=== PATIENT | male | born 1970 | race Caucasian/White ===

== ENCOUNTER 2025-02-27 11:52 | Inpatient (IN) | payer BC, SELFPAY ==
[2025-02-27] VITALS (8 sets, daily range): BP systolic 94–123; BP diastolic 48–89; PULSE 69–113; RESP 10–30; TEMP 36.7–37.1; O2SAT 95–99; BMI 26.2
--- NOTE | ~2025-02-27 | US_ITS ---
CLINICAL HISTORY: Edith evaluation Ultrasound gallbladder Comparison: None Findings: There are no shadowing gallstones. There is no gallbladder wall thickening or pericholecystic fluid. The sonographic Suazo's sign is negative. The common bile duct measures 3 mm in diameter. There is a hepatopetal flow within the main portal vein. Impression: 1. No cholelithiasis or common bile duct obstruction. This document has been electronically signed by: Cristina Maldonado MD on 02/27/2025 14:55:39
--- NOTE | 2025-02-27 11:58 | ED.GENADULT ---
[facility] - General Adult General Chief complaint: ETOH/Substance Use Stated complaint: VOMITING,THROAT/CHEST PAIN,X6D SINCE LAST DRINK Time Seen by Provider: 02/27/25 11:54 Source: patient Mode of arrival: ambulatory Limitations: no limitations History of Present Illness ED Provider: Dr. Shore [facility] narrative: This Is a 54-year-old male history of alcohol use disorder drinks 1-2 handles of vodka daily last drink was approximately 6 days ago. Presents to ER today for evaluation of alcohol withdrawal. Patient stated he feels anxious he feels nauseous he feels he is having visual hallucination and tremors. Patient does not have history of alcohol seizure withdrawal in the past. Related Data Allergies Allergy/AdvReac Type Severity Reaction Status Date / Time No Known Allergies Allergy Verified 02/27/25 12:12 Review of Systems Review of Systems: Pertinent review of systems as mentioned in HPI. All other system otherwise negative. [facility] Past Medical History [facility] Narrative: Medical history as mentioned in HPI Social History Social History Alcohol intake: current Alcohol intake frequency: 3 or more drinks per day Alcohol type: hard liquor Smoked in Last 30 Days: No Use of substances other than those prescribed or required for medical reasons: No Advance Directives: No Advance Directives Information Provided: Yes Do you have a plan to hurt others: No Plan Physical Exam ED Exam Exam: General: Appears to be withdrawal Head: Normacephalic, atraumatic ENT: oral mucosa moist, neck supple, no tracheal deviation Cardiovascular: Tachycardic rate, regular rhythm, no murmurs, rubbing, gallops Respiratory: CTAB, no wheeze, rales, rhonchi Gastrointestinal: Soft, diffuse abdominal tenderness on palpation Extremities: No limb pain or swelling, no calf tenderness Neurological: Awake and alert, no facial droop noted Skin: Warm and dry Psychiatric: Appears anxious endorses hallucinations Vital Signs: Vital Signs - 24 hr 02/27/25 12:08 Temperature 98.0 F Pulse Rate 113 H Respiratory Rate 30 H Blood Pressure 116/69 Pulse Oximetry 98 Oxygen Delivery Method Room Air BMI result Body Mass Index 26.2 Medications Administered Discontinued Medications Generic Name Dose Route Start Last Admin Trade Name Freq PRN Reason Stop Dose Admin Al Hydroxide/Mg Hydroxide 30 ml 02/27/25 13:19 02/27/25 13:53 Magnesium Hydrox/Alum Hydrox 30 Ml Oral.Susp PO 02/27/25 13:20 30 ml ONCE ONE Administration Famotidine 20 mg 02/27/25 12:14 02/27/25 12:33 Famotidine/Pf 20 Mg/2 Ml Vial IVPUSH 02/27/25 12:15 20 mg ONCE ONE Administration Lactated Ringer's 1,000 mls @ 999 mls/hr 02/27/25 12:15 02/27/25 13:57 Lr IV 02/27/25 13:15 Infused .Q1H1M ELSA Infusion Magnesium Sulfate 2 gm in 50 mls @ 50 mls/hr 02/27/25 13:45 02/27/25 15:22 Magnesium Sulfate/H2o IV 02/27/25 14:44 50 mls/hr ONCE ONE Administration Potassium Chloride 10 meq in 100 mls @ 100 mls/hr 02/27/25 13:45 02/27/25 15:22 Potassium Chloride/H20 IV 02/27/25 15:44 100 mls/hr Q1H ELSA Administration Lactated Ringer's 1,000 mls @ 999 mls/hr 02/27/25 14:00 02/27/25 14:08 Lr IV 02/27/25 15:00 999 mls/hr .Q1H1M ELSA Administration Lidocaine HCl 15 ml 02/27/25 13:19 02/27/25 13:53 Lidocaine Hcl Viscous 2 % 15 Ml Solution MUCOUS MEM 02/27/25 13:20 15 ml ONCE ONE Administration Midazolam HCl 4 mg 02/27/25 12:16 02/27/25 12:33 Midazolam Hcl 2 Mg/2 Ml Vial IVPUSH 02/27/25 12:17 4 mg ONCE ONE Administration Ondansetron HCl 4 mg 02/27/25 12:14 02/27/25 12:33 Ondansetron Hcl 4 Mg/2 Ml Vial IVPUSH 02/27/25 12:15 4 mg ONCE ONE Administration Pantoprazole Sodium 80 mg 02/27/25 13:19 02/27/25 13:57 Pantoprazole Sodium 40 Mg/10 Ml Vial IVPUSH 02/27/25 13:20 80 mg ONCE ONE Administration Phenobarbital Sodium 338 mg 02/27/25 13:00 02/27/25 13:55 Phenobarbital Sodium 130 Mg/Ml Im Once IM 02/27/25 13:01 338 mg ONCE ONE Administration Protocol Medical Decision Making Medical Decision Making MDM Narrative: This is a 54-year-old male history of alcohol use disorder presented hospital today for evaluation of alcohol withdrawal. We will plan to start patient on IV fluid, IV Zofran be given for nausea, IV Pepcid will be given for his GI pain. We will also plan to give patient a dose IV Versed. We will plan to start patient on phenobarbital protocol as well. Basic lab work will be obtained and the patient will check his electrolytes as well. Patient has signs of hypokalemia on lab work. We will plan to replete his potassium level. Further exam patient does have erythema in the oropharynx with some dry dark substance on his tongue IV Protonix will be given the patient. IV fluid be given the patient. Patient given phenobarbital. Patient's ultrasound of abdomen did not show any sign of cholecystitis or choledocholithiasis. He does have elevation of lipase transaminitis and bilirubin likely secondary to his alcohol use. We will plan to admit patient for alcohol withdrawal with hallucination. Differential Diagnosis Differential Diagnoses: The differential diagnosis associated with the presentation includes Alcohol withdrawal, dehydration, alcoholic gastritis, electrolyte abnormality Lab Data [facility] Lab Attestation statement: I reviewed the patient's lab results. 02/27/25 12:42 02/27/25 12:42 Labs: Lab Results 02/27/25 Range/Units 12:42 WBC 7.9 (4.8-10.8) X10*3/uL RBC 5.64 (4.60-5.80) X10*6/uL Hgb 16.0 (14.0-18.0) g/dl Hct 44.9 (42.0-52.0) % MCV 79.6 L (80.0-98.0) fL MCH 28.4 (27.0-33.0) pg MCHC 35.6 (31.0-36.0) g/dl RDW 14.5 (11.0-16.0) % Plt Count 117 L (160-400) X10*3/uL MPV 10.0 (9.4-12.4) fL Immature Gran % (Auto) 0.4 (0.0-0.4) % Neut % (Auto) 83.9 H (45-73) % Lymph % (Auto) 5.3 L (20-40) % Evans % (Auto) 10.3 (2-11) % Eos % (Auto) 0.0 (0-4) % Baso % (Auto) 0.1 (0-2) % Lymph # (Auto) 0.4 L (1.2-4.9) X10*3/uL Evans # (Auto) 0.8 (0.1-1.2) X10*3/uL Eos # (Auto) 0.0 (0.0-0.4) X10*3/uL Baso # (Auto) 0.0 (0.0-0.2) X10*3/uL Abs Immat Gran (auto) 0.03 (0.00-0.03) X10*3/uL Absolute Neuts (auto) 6.6 (2.0-8.3) x10*3/uL Absolute Nucleated RBC 0.000 (0.0-0.012) X10*3/uL Nucleated RBC % (auto) 0.0 (0.0-0.2) /100WBC Sodium 142 (135-145) mmol/L Potassium 2.9 L* (3.3-5.1) mmol/L Chloride 91 L (96-108) mmol/L Carbon Dioxide 29 (22-29) mmol/L Anion Gap 25 H (12-20) BUN 45 H (9-16) mg/dL Creatinine 2.58 H (0.5-1.4) mg/dL Estim Creat Clear Calc 39.5 Estimated GFR 26 Random Glucose 155 H (60-115) mg/dL Calcium 10.3 H (8.4-10.2) mg/dL Magnesium 1.6 (1.6-2.6) mg/dL Total Bilirubin 3.0 H (0.0-1.0) mg/dL AST 163 H (5-37) U/L ALT 208 H (0-40) U/L Alkaline Phosphatase 77 (39-117) U/L Total Protein 8.0 (6.5-8.0) g/dL Albumin 5.3 H (3.5-5.0) g/dL Lipase 162 H (8-78) U/L Ethyl Alcohol < 10 mg/dL Independent Interpretation I performed an independent interpretation of an: EKG and Ultrasound Radiology Impression Discussion of test interpretation with radiology: I have reviewed the radiologist's reading. Chronic Conditions Alcohol use disorder Critical Care Time Critical Care Time Critical Care Time: Yes Total Critical Care Time: 45 Attestation: Time is exclusive of separately billable procedures. Time includes: direct patient care, patient reassessment, coordination of patient care, interpretation of data (laboratory data, pulse oximetry, arterial blood gases and chest xrays), review of patient's medical records, medical consultation and documentation of patient care. Procedures excluded from critical care time: central intravenous line placement and electrocardiography. Discharge Plan Discharge Clinical Impression: Alcohol withdrawal syndrome Patient Disposition: Admitted As Inpatient Print Language: Palestinian
--- NOTE | 2025-02-27 12:23 | ECG_ITS ---
Test Reason : TACHY Blood Pressure : */* mmHG Vent. Rate : 114 BPM Atrial Rate : 114 BPM P-R Int : 84 ms QRS Dur : 82 ms QT Int : 408 ms P-R-T Axes : 75 -59 -9 degrees QTcB Int : 562 ms Sinus tachycardia with short MN Left anterior fascicular block T wave abnormality, consider anterolateral ischemia Abnormal ECG No previous ECGs available Referred By: Wanda Shore Electronically Signed By: Frankie Newberry
--- OUTSIDE RECORDS SUMMARY | 2025-02-27 12:31 | XMS_ITS | Clinical Summary ---
Author Organization [facility] Address [address] [place] [id number] Phone Care Team Providers Care Commanding Officer Traffic Division Name Role Phone JanelNahum pennington Primary Care Provider [phone] Allergies No known active allergies Medications buPROPion (WELLBUTRIN XL) 150 MG ER 24 hr tablet Take 1 tablet (150 mg total) by mouth daily. 30 tablet 09/25/2024 Active carboxymethylcel lulose (REFRESH LIQUIGEL) 1 % ophthalmic solution Place 2 drops into each eye every hour as needed (Dry eye). 30 mL 12 09/24/2024 Active Active Problems Problem Noted Date Diagnosed Date Alcohol use disorder 09/22/2024 Assessment & Plan (09/23/2024 3:39 PM EDT): Pt interested in help with alcohol cessation. Will start him on oral naltrexone Have put in application to [employer], will likely go there after d/c to his mother's Assessment & Plan (09/22/2024 2:23 PM EDT): Pt interested in help with alcohol cessation. Will start him on oral naltrexone Outpt services, SW consult Persistent depressive disorder 09/22/2024 Assessment & Plan (09/23/2024 3:39 PM EDT): Pt believes he should have started taking meds a long time ago. As he does not have a seizure history will start on wellbutrin which can also assist with addiction management Assessment & Plan (09/22/2024 2:23 PM EDT): Pt believes he should have started taking meds a long time ago. As he does not have a seizure history will start on wellbutrin which can also assist with addiction management EVANGELINA (acute kidney injury) 09/20/2024 Assessment & Plan (09/23/2024 3:39 PM EDT): resolved No further treatment or monitoring indicated Assessment & Plan (09/22/2024 2:23 PM EDT): resolved No further treatment or monitoring indicated Assessment & Plan (09/21/2024 1:57 PM EDT): resolving No hx of CKD known although last cr available is from 2019 Will give IVF Await UA for further differential -- UA shows >10 casts, FeNa reveals profound prerenal state consistent with presumed lack of oral intake. Renal function improving with hydration. Assessment & Plan (09/21/2024 1:54 AM EDT): Marked EVANGELINA No hx of CKD known although last cr available is from 2019 Will give IVF Await UA for further differential -- UA shows >10 casts, FeNa reveals profound prerenal state consistent with presumed lack of oral intake. Renal function improving with hydration. Alcohol withdrawal delirium, acute, hyperactive 09/20/2024 Assessment & Plan (09/23/2024 3:39 PM EDT): Resolved Acute etoh withdrawal with sweats, tremor, hallucinations, flushing Much better after a total of 14 mg/kg phenobarb Assessment & Plan (09/22/2024 2:23 PM EDT): Resolved Acute etoh withdrawal with sweats, tremor, hallucinations, flushing Much better this morning after a total of 14 mg/kg phenobarb Plan Will use benzos from here if needed Thiamine Folate [facility] SW consult Assessment & Plan (09/21/2024 1:57 PM EDT): Acute etoh withdrawal with sweats, tremor, hallucinations, flushing Much better this morning after a total of 14 mg/kg phenobarb Plan Will use benzos from here if needed Thiamine Folate [facility] SW consult Can start naloxone here if he is interested Assessment & Plan (09/20/2024 11:00 PM EDT): Acute etoh withdrawal with sweats, tremor, hallucinations, flushing Plan Total initial pheno of 12/kg IVF's Monitor I/0' Thiamine Folate [facility] SW consult when mentation improves Social History Tobacco Use Types Packs/Day Years Used Date Smoking Tobacco: Some Days Alcohol Use Standard Drinks/Week Comments Yes 0 (1 standard drink = 0.6 oz pure alcohol) 10 drinks a day at least. last drink etoh Education Answer Date Recorded Are you interested in more education? Not on garo e 09/21/2024 Are you concerned about learning? Not on file 09/21/2024 No 09/21/2024 No 09/21/2024 Food Answer Date Recorded Within the past 6 months we worried whether our food would run out before we got money to buy more. Unable to assess 025 Within the past 6 months the food we bought just didn't last and we didn't have enough money to get more. Unable to assess 09/20/2024 Residential Stability Answer Date Recor ded What is your housing situation today? Unable to assess 09/20/2024 How many times have you moved in the past 12 mon ths? Unable to assess 09/20/2024 Paying for Meds Answer Date Recorded Do you have trouble paying for medicines? Unable to assess 09/20/2024 Paying Utility Bills Answer Date Record ed Do you have trouble paying y our heating or electricity bill? Unable to assess 09/20/2024 Transportation Answer Date Recorded Has the lack of transportati on kept you from medical appointments or from getting medications? Unable to assess 09/20/2024 Digital Access Answer Date Recorded No 09/20/2024 No 09/20/2024 Do you have reliable internet access at home? Un able to assess 09/20/2024 Do you have a device (e.g., phone, tablet, computer) with a working camera? Unable to assess 09/20/2024 Intimate Partner Violence Answer Date R ecorded Are you denied basic needs s uch as food, clothing, or medical care? Patient unable to respond 09/20/2024 In the past 12 months have y ou been in a relationship with a person who hurts, threatens, or tries to control you? Patient unable to respond 09/20/2024 Are you denied basic needs s uch as food, clothing, or medical care? Patient unable to respond 09/20/2024 In the past 12 months have y ou been in a relationship with a person who hurts, threatens, or tries to control you? Patient unable to respond 09/20/2024 Sex and Gender Information Value Date Recorded Sex Assigned at Male 07/23/2018 10:07 AM EST Legal Sex Male 9:21 AM EST Gender Identity Male 07/23/2018 10:07 AM EST Sexual Orientation Straight 07/23/2018 10 :07 AM EST Last Filed Vital Signs Vital Sign Reading Time Taken Comments Blood Pressure 135/82 09/24/2024 11:55 AM EDT Pulse 78 09/24/2024 11:55 AM EDT Temperature 36.1 C (97 F) 09/24/2024 11:55 AM EDT Respiratory Rate 18 09/24/2024 8:40 AM EDT Oxygen Saturation 99% 09/24/2024 11:55 AM EDT Inhaled Oxygen Concentration - - Weight 96.4 kg (212 lb 9.6 oz) 09/24/2024 6:41 A M EDT Height 190.5 cm (6' 3 ) 09/20/2024 11:27 PM EDT Body Mass Index 26.57 09/20/2024 11:27 PM EDT Plan of Treatment Health Maintenance Due Date Last Done Comments Adult Td,Tdap Booster 1971 LIPID PANEL 1971 DEPRESSION SCREENING 1983 SMOKING Hx and SMOKELESS TOB ACCO SCREENING 1984 HEPATITIS C SCREENING 1989 HIV ONE-TIME SCREENING (18-6 5 YEARS) 1989 PNEUMOCOCCAL VACCINES (50+ y ears) (1 of 2 - PCV) 1990 COLOGUARD 2016 COLONOSCOPY 2016 COLORECTAL CANCER SCREENING 2016 FIT TEST 2016 FOBT 2016 SIGMOIDOSCOPY 2016 VIRTUAL COLONOSCOPY 2016 ZOSTER VACCINES (1 of 2) 2021 INFLUENZA VACCINE (#1) 2025 COVID-19 VACCINE (2024-2 6 season) 2025 10/11/2020 SCREENING FOR DIABETES 09/23/2027 09/22/2024 HEPATITIS A VACCINES Aged Out No long er eligible based on patient's age to complete this topic HIB VACCINES Aged Out No longer eligi ble based on patient's age to complete this topic MENINGOCOCCAL VACCINES (ACWY) Aged Out No longer eligible based on patient's age to complete this topic MENINGOCOCCAL VACCINES (B) Aged Out N o longer eligible based on patient's age to complete this topic Medical Devices Not on file Insurance PPO EPO PPO EPO [facility] [place] [address] [place] [address] [place] [address] [place] [address] E[address] [facility] PPO EPO [place] [address] [place] [address] [facility] PPO EPO Advance Directives For more information, please contact: [phone] (9AM - 5PM [facility], Friday-Friday) * Full Code (Latest Code Status on File) Date Activated Date Inactivated Comments 09/21/2024 8:13 AM Question Answer Comments Code Status Confirmed With: Other (specify below ) Care Teams Commanding Officer Traffic Division Relationship Specialty Start Date End Date Nahum Rob DO [address] [place] [id number] PCP - General Internal Medicine 09/22/24 Additional Source Comments The information contained in this document represents components of the legal health record. It is not the complete legal health record.[facility]
--- OUTSIDE RECORDS SUMMARY | 2025-02-27 12:32 | XMS_ITS | Encounter Summary ---
Author Organization [facility] Address [address] [place] [id number] Phone Care Team Providers Care Rn Operating Room Name Role Phone Pcp, Unknown Primary Care Provider Nahum Dorantes DO Primary Care Provider [phone] Encounter Details Date Type Department Care Team (Late st Contact Info) Description 09/20/2024 Procedure Pass [facility], Ct Scan - [address] [address] Social History Tobacco Use Types Packs/Day Years [...] Orientation Straight 07/23/2018 10 :07 AM EST documented as of this encounter Functional Status * Calculated C-SSRS Risk Score (Lifetime/Recent) Answer Date of Assessment Author Low Risk 09/20/2024 5:16 PM Leon Morris RN * [place] Suicide Severity Rating Scale (Screener/Recent Self-Report) Question Answer Date of Assessment Author 1. Wish to be (Past 1 Month) No 025 5:16 PM Delfino Morris, CRIS 2. Non-Specific Active Suici adi Thoughts (Past 1 Month) Yes 09/20/2024 5:16 PM Delfino Morris, RN 3. Active Suicidal Ideation with any Methods (Not Plan) Without Intent to Act (Past 1 Month) No 09/20/2024 5:16 PM Delfino Morris, RN 4. Active Suicidal Ideation with Some Intent to Act, Without Specific Plan (Past 1 Month) No 09/20/2024 5:16 PM EDT Delfino Bush, CRIS 5. Active Suicidal Ideation with Specific Plan and Intent (Past 1 Month) No 09/20/2024 5:16 PM EDT Delfino Bush, CRIS 6. Suicidal Behavior (Lifetime) No 5 5:16 PM EDT Delfino Bush, CRIS 6. Suicidal Behavior (3 Months) No 5 5:16 PM EDT Delfino Bush, CRIS documented as of this encounter Plan of Treatment Not on file documented as of this encounter Visit Diagnoses Not on filedocumented in this encounter Care Teams Rn Operating Room Relationship Specialty Start Date End Date Pcp, Unknown PCP - General 09/20/24 09/21/24 Nahum Rob DO [address] [place] [id number] PCP - General Internal Medicine 09/22/24 documented as of this encounter Additional Source Comments The information contained in this document represents components of the legal health record. It is not the complete legal health record.[facility]
--- OUTSIDE RECORDS SUMMARY | 2025-02-27 12:32 | XMS_ITS | Clinical Summary ---
Author Organization [address] Address [address] [place] [id number] Phone Care Team Providers Care Commercial Lines Assistant Name Role Phone ToniNahum melendez Primary Care Provider [phone] Allergies No known active allergies Medications No known medications Social History Tobacco Use Types Packs/Day Years Used Date Smoking Tobacco: Never Smokeless Tobacco: Never Tobacco Cessation:Counseling Given: Not Answered Alcohol Use Standard Drinks/Week Comments Yes 0 (1 standard drink = 0.6 oz pur e alcohol) Sex and Gender Information Value Date Recorded Sex Assigned at Not on file Legal Sex Male 12:02 AM EST Gender Identity Not on file Sexual Orientation Not on file Obstetrics History Last Filed Vital Signs Vital Sign Reading Time Taken Comments Blood Pressure 116/77 11/09/2024 10:20 PM EDT Pulse 93 11/09/2024 10:20 PM EDT Temperature 36.4 C (97.5 F) 11/09/2024 10:20 PM EDT Respiratory Rate 18 11/09/2024 10:20 PM EDT Oxygen Saturation 100% 11/09/2024 11:47 PM EDT Inhaled Oxygen Concentration - - Weight 95.3 kg (210 lb) 11/09/2024 10:20 PM EDT Height 190.5 cm (6' 3 ) 11/09/2024 10:20 PM EDT Body Mass Index 26.25 11/09/2024 10:20 PM EDT Plan of Treatment Health Maintenance Due Date Last Done Comments DTaP,Tdap,and Td Vaccines (1 - Tdap) 1990 Hepatitis A Vaccines (1 of 2 - Risk 2-dose series) 1990 Hepatitis B Vaccines (1 of 3 - 19+ 3-dose series) 1990 Pneumococcal Vaccine: 50+ Years (1 of 1 - PCV) 2021 Zoster Vaccines (1 of 2) 2021 Colorectal Cancer Screening: Colonoscopy 06/03/2022 HIV Screening 06/03/2022 Hepatitis C Screening 06/03/2022 Social Influencers of Health Screening 06/03/2022 Depression Screening 06/09/2024 COVID-19 Vaccine (4 - 2024-2 6 season) 2025 06/20/2021, 11/01/2020, 10/11/2020 Influenza Vaccine (#1) 2025 , 06/20/2021 Cholesterol Screening (Lipid Panel) 05/11/2029 05/11/2024 HIB Vaccines Aged Out No longer eligi ble based on patient's age to complete this topic HPV Vaccines Aged Out No longer eligi ble based on patient's age to complete this topic IPV Vaccines Aged Out No longer eligi ble based on patient's age to complete this topic MMR Vaccines Aged Out No longer eligi ble based on patient's age to complete this topic Meningococcal ACWY Vaccine Aged Out N o longer eligible based on patient's age to complete this topic Meningococcal B Vaccine Aged Out No l onger eligible based on patient's age to complete this topic RSV Immunization Patients Under 20 months Aged Out No longer eligible b ased on patient's age to complete this topic Varicella Vaccines Aged Out No longer eligible based on patient's age to complete this topic Procedures Procedure Name Priority Date/Time Associated Diagnosis Comments LIPID PANEL WITH REFLEX TO DIRECT LDL Routine 05/11/2024 9:48 AM EST Laboratory tests ordered as part of a complete physical exam (CPE) ETOH abuse IGT (impaired glucose tolerance) Anxiety HLD (hyperlipidemia) from Last 3 Months or Most Recently Relevant to Health Maintenance Results * (ABNORMAL) Lipid panel with reflex to direct LDL (05/11/2024 9:48 AM EST) Cholesterol 189 0 - 200 mg/dL LAB CHEMISTRY METHOD 05/11/2024 11:57 AM EST [facility] Triglycerides 76 0 - 150 mg/dL LAB CHEMISTRY METHOD 05/11/2024 11:57 AM EST [facility] HDL 57 >=40 mg/dL LAB CHEMISTRY METHOD 05/11/2024 11:57 AM EST [facility] LDL Calculated 117(H) 0 - 100 mg/dL LAB CHEMISTRY METHOD 05/11/2024 11:57 AM EST [facility] VLDL Cholesterol Parmjit 15.2 mg/dL LAB CHEMISTRY METHOD 05/11/2024 11:57 AM EST [facility] Non HDL Chol. (LDL+VLDL) 132 <145 mg/dL LAB CHEMISTRY METHOD 05/11/2024 11:57 AM EST [facility] Chol/HDL Ratio 3.3 0.0 - 4.4 LAB CHEMISTRY METHOD 05/11/2024 11:57 AM EST [facility] Blood Venous blood specimen / Unknown Venipuncture / Unknown 05/11/2024 9:48 AM EST 05/11/2024 9:48 AM EST us Delfino Teran LAB BLOOD ORDERABLES Final Resul t [facility] [address] [place] [address], from Last 3 Months or Most Recently Relevant to Health Maintenance Insurance [facility] Care Teams Commercial Lines Assistant Relationship Specialty Start Date End Date aNhum Rob DO [address] [place] [phone] PCP - General 11/28/21
--- OUTSIDE RECORDS SUMMARY | 2025-02-27 12:32 | XMS_ITS | Patient Health Record ---
Author Organization [facility] Address [address] [place] [id number] Care Team Providers Care Assayer Helper Name Role Phone Darron ALFORD, Nahum Primary Care Provider Lenora Maxwell Unavailable [phone] Allergies No Known Allergies Reason For Referral No Information Social History Tobacco Use: Social History Observation Description Date Details (start date - stop date) Former Smoker NA - NA Tobacco Use/Smoking Question Answer Notes Are you a: former smoker Alcohol Screen Question Answer Notes Did you have a drink containing alcohol in the p ast year? No Points 0 Interpretation Negative Tobacco use other than smoking: Question Answer Notes Are you an other tobacco user? No Problems Problem Type SNOMED Code ICD Code Onset Dates Problem Status W/U Status Risk Notes Problem Acquired hallux valgus (36833424) Hallux valgus (acquired), right foot (M20.11) Active confirmed Plan Of Treatment No Information Insurance Providers Payer Name Payer Address Payer Phone Subscriber Number Group Number Insured Name Patient Relationship to Insured Coverage Start Date Coverage End Date [facility] [address] [address] [place] [address] [phone] [id number] [id number] Tai Maurice Self - patient is the insured Medical (General) History Medical History History ICD Code Arthritis Back,Hip,and Knee pain Broken bones Chicken pox Bone implants/screws Surgical History Surgery Date(Month/Year) broken arm(s) 1994 knee surgery, left 2006
[2025-02-27] MEDS: Lactated Ringers 1,000 ML 999 ML IV ×3 (12:33→21:32)
--- NOTE | 2025-02-27 12:46 | PC.NURSE ---
Pt biba from home for ETOH withdrawal x6 days. Pt states he tried to self detox at home, last drink x6 days ago (02/21/25.) Daily drinker, 1-2 handles of vodka daily. Hx of ETOH withdrawal- denies hx of seizures with withdrawal. Per pt- unable to tolerate PO x6 days, chest pain/throat pain. Endorsing auditory hallucinations that have resolved since arriving at ED, visual hallucinations of bugs. Upon arrival to ED- pt a/ox3, diaphoretic, tremorous, tachypneic, tachycardic, speaking in full sentences, respirations even and unlabored, maintaining O2 sat >92% on RA. Endorsing nausea- no vomiting since arrival, chest/epigastric pain along with throat burning/pain d/t vomiting. Sinus tach on potline monitor, HR 110s-120s, epigastric/abdominal pain, denies diarrhea. 20g IV Right AC- ems line, patent/asymptomatic. VERONICA Esparza MD notified and at bedside for assessment. 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 Pt updated on plan of care, call estrada within reach, all needs met at this time.
[2025-02-27 12:47] LABS: MANUAL DIFF FLAG NO
[2025-02-27 12:54] LABS: Hematocrit 44.9 % (42.0-52.0); Hemoglobin 16.0 g/dl (14.0-18.0); Imm Gran Abs Auto 0.03 X10*3/uL (0.00-0.03); Imm Gran Pct Auto 0.4 % (0.0-0.4); Lymphocytes Absolute Auto 0.4 X10*3/uL (1.2-4.9); Mean Corpuscular HGB Conc 35.6 g/dl (31.0-36.0); Mean Corpuscular Hemoglobin 28.4 pg (27.0-33.0); Mean Corpuscular Volume 79.6 fL (80.0-98.0); NRBC Abs Auto 0.000 X10*3/uL (0.0-0.012); NRBC Pct Auto 0.0 /100WBC (0.0-0.2); Platelet Count 117 X10*3/uL (160-400); Red Blood Count 5.64 X10*6/uL (4.60-5.80); White Blood Count 7.9 X10*3/uL (4.8-10.8)
[2025-02-27 13:31] LABS: Alanine Aminotransferase 208 U/L (0-40); Albumin Level 5.3 g/dL (3.5-5.0); Alkaline Phosphatase 77 U/L (39-117); Anion Gap 25 (12-20); Aspartate Amino Transferase 163 U/L (5-37); Blood Urea Nitrogen 45 mg/dL (9-16); Calcium 10.3 mg/dL (8.4-10.2); Carbon Dioxide 29 mmol/L (22-29); Chloride 91 mmol/L (96-108); Creatinine Clr Calc Pharmacy 39.5; Estimated Glomerular Filt Rate 26; Magnesium 1.6 mg/dL (1.6-2.6); Potassium 2.9 mmol/L (3.3-5.1); Sodium 142 mmol/L (135-145); Total Protein 8.0 g/dL (6.5-8.0)
[2025-02-27] MEDS: Magnesium Hydrox/Alum Hydrox 30 ML ORAL.SUSP PO (13:53)
[2025-02-27] MEDS: Lidocaine HCl Viscous 2 % 15 ML SOLUTION MUCOUS MEM (13:53)
[2025-02-27] MEDS: PHENobarbitaL sodium 130 MG/ML IM ONCE 338 MG IM (13:55)
[2025-02-27] MEDS: Potassium Chloride/H20 10 MEQ/100 ML PIGGYBACK 100 MEQ IV ×2 (14:09→15:22)
--- NOTE | 2025-02-27 14:17 | PC.NURSE ---
Care of Pt assumed at approx. 1300. Pt is resting quietly on stretcher. Pt medicated per AUG. Unable to initiate IV Magnesium d/t lack of equipment (infusion pump.) Will administer upon pump availability.
[2025-02-27 14:21] LABS: Lipase 162 U/L (8-78)
[2025-02-27] MEDS: Magnesium Sulfate/H2O 2 GM/50 ML PIGGYBACK IV (15:22)
--- NOTE | 2025-02-27 15:37 | P.HPHOSP_ITS ---
History of Present Illness Date of Service: 02/27/25 Chief Complaint: Alcohol withdrawal The patient is a 54-year-old male with no significant past medical history who reports daily consumption of approximately a handle of vodka. Six days ago, he decided to self-detox and abruptly stopped drinking. Since then, he has experienced progressive tremors, nausea, vomiting, and inability to keep food down, which ultimately prompted him to seek medical attention. He denies any prior history of withdrawal seizures or delirium tremens. No recent sick contacts or travel. Laboratory Data: * CBC: Platelets 117K, otherwise unremarkable * Potassium: 2.9 * Anion gap: 2.58 * BUN/Creatinine: 45 * Glucose: 155 * AST: 163, ALT: 208 * Lipase: 162 * Abdominal US: No cholelithiasis or common bile duct obstruction ED Treatment: IV fluids, potassium replacement, phenobarbital, ondansetron, magnesium, pantoprazole, diazepam Review of Systems 2 Review of Systems: Gen: no fever Resp: no sob, no cough CV: no chest, no PIPER, no leg edema GI: + n/v, + abd pain Neuro: No confusion Yes all other systems are reviewed and are negative [facility] Social History Alcohol intake: current Alcohol intake frequency: 3 or more drinks per day Alcohol type: hard liquor Smoked in Last 30 Days: No Use of substances other than those prescribed or required for medical reasons: No Advance Directives: No Advance Directives Information Provided: Yes Do you have a plan to hurt others: No Plan Meds Allergies Allergy/AdvReac Type Severity Reaction Status Date / Time No Known Allergies Allergy Verified 02/27/25 12:12 Active Medications: Current Medications Potassium Chloride (Potassium Chloride/H20) 10 meq in 100 mls @ 100 mls/hr IV Q1H ELSA Stop: 02/27/25 15:44 Last Admin: 02/27/25 15:22 Dose: 100 mls/hr Pharmacy Consult (Consult Rx Etoh Phenob Im/Po) 1 each MISCELLANE ONCE PRN; Protocol PRN Reason: Consult order Phenobarbital (Phenobarbital 30 Mg Tablet) 60 mg PO BID ELSA; Protocol Stop: 03/01/25 21:01 Phenobarbital (Phenobarbital 30 Mg Tablet) 30 mg PO BID ELSA; Protocol Stop: 03/03/25 21:01 Phenobarbital (Phenobarbital 30 Mg Tablet) 30 mg PO DAILY ELSA; Protocol Stop: 03/05/25 09:01 Phenobarbital Sodium (Phenobarbital Sodium 130 Mg/Ml Vial Im Q3hx2) 254 mg IM Q3H ELSA; Protocol Stop: 02/27/25 19:01 Physical Exam 2 Vital Signs and Narrative: Vital Signs: Last Vital Signs Temp 98.0 F 02/27/25 12:08 Pulse 113 H 02/27/25 12:08 Resp 30 H 02/27/25 12:08 BP 116/69 02/27/25 12:08 Pulse Ox 98 02/27/25 12:08 O2 Del Method Room Air 02/27/25 12:08 BMI result Body Mass Index 26.2 Const: Other: General:?Well-appearing, in no acute distress. Vital Signs:?Stable. HEENT:?Normocephalic, atraumatic. Oropharynx clear. Neck:?Supple, no lymphadenopathy. Cardiac:?Regular rate and rhythm, no murmurs, rubs, or gallops. Lungs:?Clear to auscultation bilaterally, no rales, wheezes, or rhonchi. Abdomen:?Soft, non-tender, non-distended, no rebound or guarding, normal bowel sounds. Extremities:?No edema, cyanosis, or clubbing. Neuro:?Alert and oriented, no focal deficits. Skin:?Warm, dry, no rashes or lesions. Results Labs 02/27/25 12:42 02/27/25 12:42 Labs: Laboratory Results - last 24 hr 02/27/25 12:42 MCV 79.6 L MCH 28.4 MCHC 35.6 RDW 14.5 Plt Count 117 L MPV 10.0 Immature Gran % (Auto) 0.4 Neut % (Auto) 83.9 H Lymph % (Auto) 5.3 L [place] % (Auto) 10.3 Eos % (Auto) 0.0 Baso % (Auto) 0.1 Lymph # (Auto) 0.4 L [place] # (Auto) 0.8 Eos # (Auto) 0.0 Baso # (Auto) 0.0 Abs Immat Gran (auto) 0.03 Absolute Neuts (auto) 6.6 Absolute Nucleated RBC 0.000 Nucleated RBC % (auto) 0.0 Anion Gap 25 H Estim Creat Clear Calc 39.5 Estimated GFR 26 Random Glucose 155 H Calcium 10.3 H Magnesium 1.6 Total Bilirubin 3.0 H AST 163 H ALT 208 H Alkaline Phosphatase 77 Total Protein 8.0 Albumin 5.3 H Lipase 162 H Ethyl Alcohol < 10 Assessment and Plan (1) Alcohol withdrawal syndrome: Status: Acute Plan 54-year-old male with severe alcohol use disorder presenting with alcohol withdrawal symptoms (tremors, tachycardia, nausea, vomiting), hypokalemia, acute pancreatitis (elevated lipase), transaminitis, and acute kidney injury (likely pre-renal from volume depletion). No evidence of biliary obstruction on imaging. Alcohol withdrawal Continue phenobarbital protocol CIWA monitoring, Monitor for progression to severe withdrawal (seizures, delirium tremens). Nutritional support: Thiamine, folate, multivitamins. HypOkalemia IV potassium replacement Monitor electrolytes closely, monitor mag Acute pancreatitis, likely alcoholic type, US is fine Supportive care with NPO, IV fluids, pain control, and antiemetics. Monitor for complications. Elevated LFTs: likely from chronic alcohol use Monitor LFTs and clinical status. 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 Acute kidney injury likely pre-renal state IV fluid resuscitation. Monitor renal function and urine output. Disposition: Admit to monitored setting for ongoing management and withdrawal monitoring. Social work consult for alcohol cessation resources and support. Follow-up: Serial labs to monitor electrolytes, renal function, LFTs, and withdrawal symptoms. DVT prophylaxis: lovenox Full code Liquid diet Quality Stroke Does the patient have a stroke diagnosis?: No VTE Prior VTE?: No VTE Risk Level:: Medical - moderate - high VTE Device Contraindication: Treatment Not Indicated VTE Drug Contraindication: N/A - Med Ordered
--- NOTE | 2025-02-27 16:28 | PHA.MEDREC ---
Addendum entered by Costa Ordaz RPh 02/27/25 16:32: MED REC REVIEWED BY [facility] (Coco spoke to patient) Original Note: Pharmacy Consult ? Medication Reconciliation Pharmacy has completed the medication reconciliation.
[2025-02-27] MEDS: Thiamine HCL 200 MG in 0.9 % Sodium Chloride 100 ML 204 MG IV (16:40)
[2025-02-27] MEDS: PHENobarbitaL sodium 130 MG/ML VIAL IM Q3Hx2 254 MG IM (16:45)
[2025-02-27] MEDS: KCl 20 mEq in 5 % Dex/Lact Rin 20 MEQ/1,000 ML IV.SOLN 150 MEQ IVCONT (17:43)
[2025-02-27 18:12] LABS: Cannabinoid Screen Urine Not Detected (Not Detect)
--- NOTE | 2025-02-27 20:21 | PC.NURSE ---
patient RR 12, IM phenobarb held per protocol. CIWA 16. patient c/o sore throat r/t vomiting. physician aware and new orders obtained.
[2025-02-27] MEDS: Throat Lozenge, Medicated LOZENGE 1 LOZENGE MUCOUS MEM (21:33)
[2025-02-27 21:48] LABS: Anion Gap 17 (12-20); Blood Urea Nitrogen 39 mg/dL (9-16); Calcium 9.4 mg/dL (8.4-10.2); Carbon Dioxide 31 mmol/L (22-29); Chloride 98 mmol/L (96-108); Creatinine Clr Calc Pharmacy 53.1; Estimated Glomerular Filt Rate 37; Magnesium 2.7 mg/dL (1.6-2.6); Potassium 3.3 mmol/L (3.3-5.1); Sodium 143 mmol/L (135-145)
--- NOTE | 2025-02-27 23:12 | PC.NURSE ---
patient sleeping, skin pwd, resp even and non labored. NSR via tele
[2025-02-28] VITALS (8 sets, daily range): BP systolic 109–132; BP diastolic 61–97; PULSE 74–95; RESP 12–20; TEMP -17.7–36.8; O2SAT 97–99; BMI 26.2
[2025-02-28] MEDS: KCl 20 mEq in 5 % Dex/Lact Rin 20 MEQ/1,000 ML IV.SOLN 150 MEQ IVCONT ×5 (00:22→22:54)
[2025-02-28] MEDS: 0.9 % Sodium Chloride Flush 3 ML SYRINGE IVFLUSH ×2 (00:22→10:07)
--- NOTE | 2025-02-28 01:07 | PC.NURSE ---
patient sleeping. skin pwd, resp even and non labored, nsr via tele. IV fluids infusing per order
[2025-02-28] MEDS: Throat Lozenge, Medicated LOZENGE 1 LOZENGE MUCOUS MEM ×6 (04:12→22:21)
[2025-02-28 05:28] LABS: Alanine Aminotransferase 380 U/L (0-40); Albumin Level 4.4 g/dL (3.5-5.0); Alkaline Phosphatase 67 U/L (39-117); Anion Gap 13 (12-20); Aspartate Amino Transferase 508 U/L (5-37); Blood Urea Nitrogen 34 mg/dL (9-16); Calcium 9.2 mg/dL (8.4-10.2); Carbon Dioxide 33 mmol/L (22-29); Chloride 100 mmol/L (96-108); Creatinine Clr Calc Pharmacy 66.3; Estimated Glomerular Filt Rate 47; Potassium 3.4 mmol/L (3.3-5.1); Sodium 143 mmol/L (135-145); Total Protein 6.8 g/dL (6.5-8.0)
--- NOTE | 2025-02-28 09:21 | P.PNIM_ITS ---
Subjective Subjective Date of Service: 02/28/25 Review of Systems Follow up alcohol withdrawal and Pancreatitis still feeling anxiety, mild tremors, + nausea Physical Exam 2 Exam: Exam: Appearing in no acute distress lung sounds are clear to auscultation heart regular rate rhythm, clear S1, S2 positive bowel sounds, abdomen is soft, nontender neuro patient is alert x3, no focal deficits Vital Signs: Vital Signs: Last Vital Signs Temp 98.0 F 02/28/25 07:17 Pulse 87 02/28/25 07:17 Resp 14 02/28/25 07:17 BP 121/61 02/28/25 07:17 Pulse Ox 99 02/28/25 07:17 O2 Del Method Room Air 02/28/25 07:17 BMI result Body Mass Index 26.2 Objective Data Active Medications Acetaminophen (Acetaminophen 325 Mg Tablet) 650 mg PO Q6H PRN PRN Reason: Pain, Mild 1-3,fever,headache Last Admin: 02/28/25 04:16 Dose: 650 mg Documented By: MICHAEL Al Hydroxide/Mg Hydroxide (Magnesium Hydrox/Alum Hydrox 30 Ml Oral.Susp) 30 ml PO Q4H PRN PRN Reason: Heartburn Benzocaine (Throat Lozenge, Medicated Lozenge) 1 lozenge MUCOUS MEM Q2H PRN PRN Reason: Sore Throat Last Admin: 02/28/25 08:24 Dose: 1 lozenge Documented By: PAULO Calcium Carbonate (Calcium Carbonate 750 Mg Tab.Chew) 750 mg PO Q4H PRN PRN Reason: Heartburn Enoxaparin Sodium (Enoxaparin Sodium 40 Mg/0.4 Ml Syringe) 40 mg SUBCUT Q24H [facility] Last Admin: 02/27/25 16:45 Dose: 40 mg Documented By: NORMA Folic Acid 1 mg/ Sodium (Chloride) 50.2 mls @ 100.4 mls/hr IV DAILY [facility] Stop: 03/02/25 09:29 Last Admin: 02/28/25 08:52 Dose: 100.4 mls/hr Documented By: PAULO Potassium Cl/Dextrose/Lact Ringer's (Kcl 20 Meq In 5 % Dex/Lact Rin) 20 meq in 1,000 mls @ 150 mls/hr IVCONT .Q6H40M [facility] Last Admin: 02/28/25 08:18 Dose: 150 mls/hr Documented By: PAULO Magnesium Hydroxide (Milk Of Magnesia 30 Ml Oral.Susp) 30 ml PO DAILY PRN PRN Reason: Constipation Melatonin (Melatonin 3 Mg Tablet) 6 mg PO BEDTIME PRN PRN Reason: Insomnia Pharmacy Consult (Consult Rx Etoh Phenob Im/Po) 1 each MISCELLANE ONCE PRN; Protocol PRN Reason: Consult order Phenobarbital (Phenobarbital 30 Mg Tablet) 60 mg PO BID [facility]; Protocol Stop: 03/01/25 21:01 Last Admin: 02/28/25 08:49 Dose: 60 mg Documented By: PAULO Phenobarbital (Phenobarbital 30 Mg Tablet) 30 mg PO BID [facility]; Protocol Stop: 03/03/25 21:01 Phenobarbital (Phenobarbital 30 Mg Tablet) 30 mg PO DAILY [facility]; Protocol Stop: 03/05/25 09:01 Prochlorperazine Edisylate (Prochlorperazine Edisylate 10 Mg/2 Ml Vial) 5 mg IVPUSH Q4H PRN PRN Reason: Nausea and Vomiting Last Admin: 02/28/25 04:17 Dose: 5 mg Documented By: MICHAEL Sodium Chloride (0.9 % Sodium Chloride Flush 3 Ml Syringe) 3 ml IVFLUSH QSHIFT [facility] Last Admin: 02/28/25 00:22 Dose: 3 ml Documented By: PAULA Thiamine HCl (Thiamine Hcl 100 Mg Tablet) 100 mg PO DAILY [facility] Stop: 03/02/25 09:01 Last Admin: 02/28/25 08:49 Dose: 100 mg Documented By: PAULO Labs 02/27/25 12:42 02/28/25 04:47 Labs: Laboratory Results - last 24 hr 02/27/25 02/27/25 02/27/25 12:42 17:53 21:32 MCV 79.6 L MCH 28.4 MCHC 35.6 RDW 14.5 Plt Count 117 L MPV 10.0 Immature Gran % (Auto) 0.4 Neut % (Auto) 83.9 H Lymph % (Auto) 5.[address] [place] % (Auto) 10.3 Eos % (Auto) 0.0 Baso % (Auto) 0.1 Lymph # (Auto) 0.[address] [place] # (Auto) 0.8 Eos # (Auto) 0.0 Baso # (Auto) 0.0 Abs Immat Gran (auto) 0.03 Absolute Neuts (auto) 6.6 Absolute Nucleated RBC 0.000 Nucleated RBC % (auto) 0.0 Anion Gap 25 H 17 Estim Creat Clear Calc 39.5 53.1 Estimated GFR 26 37 Random Glucose 155 H 125 H Calcium 10.3 H 9.4 D Magnesium 1.6 2.7 H Total Bilirubin 3.0 H Direct Bilirubin AST 163 H ALT 208 H Alkaline Phosphatase 77 Total Protein 8.0 Albumin 5.3 H Lipase 162 H Urine Opiates Screen Not Detected Ur Buprenorphine Scrn Not Detected Ur Oxycodone Screen Not Detected Urine Methadone Screen Not Detected Urine Fentanyl Screen Not Detected Ur Barbiturates Screen POSITIVE H Ur Phencyclidine Scrn Not Detected Ur Amphetamines Screen Not Detected U Benzodiazepines Scrn POSITIVE H Urine Cocaine Screen Not Detected U Marijuana (THC) Screen Not Detected Ethyl Alcohol < 10 02/28/25 04:47 MCV MCH MCHC RDW Plt Count MPV Immature Gran % (Auto) Neut % (Auto) Lymph % (Auto) [place] % (Auto) Eos % (Auto) Baso % (Auto) Lymph # (Auto) [place] # (Auto) Eos # (Auto) Baso # (Auto) Abs Immat Gran (auto) Absolute Neuts (auto) Absolute Nucleated RBC Nucleated RBC % (auto) Anion Gap 13 Estim Creat Clear Calc 66.3 Estimated GFR 47 Random Glucose 111 Calcium 9.2 Magnesium Total Bilirubin 1.9 H Direct Bilirubin 0.7 H AST 508 H ALT 380 H Alkaline Phosphatase 67 Total Protein 6.8 Albumin 4.4 Lipase Urine Opiates Screen Ur Buprenorphine Scrn Ur Oxycodone Screen Urine Methadone Screen Urine Fentanyl Screen Ur Barbiturates Screen Ur Phencyclidine Scrn Ur Amphetamines Screen U Benzodiazepines Scrn Urine Cocaine Screen U Marijuana (THC) Screen Ethyl Alcohol Assessment and Plan (1) Alcohol withdrawal syndrome: Status: Acute Plan 54-year-old male with severe alcohol use disorder presenting with alcohol withdrawal symptoms (tremors, tachycardia, nausea, vomiting), hypokalemia, acute pancreatitis (elevated lipase), transaminitis, and acute kidney injury (likely pre-renal from volume depletion). No evidence of biliary obstruction on imaging. Alcohol withdrawal Continue phenobarbital protocol CIWA monitoring, Monitor for progression to severe withdrawal (seizures, delirium tremens). Nutritional support: Thiamine, folate, multivitamins. Hypokalemia. Resolved IV potassium replacement Monitor electrolytes closely, monitor mag Acute pancreatitis, likely alcohol related clear diet IV fluids, pain control, and antiemetics. Monitor for complications. Elevated LFTs, likely from chronic alcohol use Monitor LFTs and clinical status. 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 Acute kidney injury likely pre-renal state, resolving IV fluid resuscitation. Monitor renal function and urine output. Disposition: Admit to monitored setting for ongoing management and withdrawal monitoring. Social work consult for alcohol cessation resources and support. Follow-up: Serial labs to monitor electrolytes, renal function, LFTs, and withdrawal symptoms. DVT prophylaxis: lovenox Full code Quality Stroke Does the patient have a stroke diagnosis?: No VTE Prior VTE?: No VTE Risk Level:: Medical - moderate - high VTE Device Contraindication: Treatment Not Indicated VTE Drug Contraindication: N/A - Med Ordered
--- NOTE | 2025-02-28 10:39 | PC.NURSE ---
Pt A&O X4 VSS NAD, given Zofran for Nausea- Provider in earlier to eval pt and aware of CIWA 3. Also aware pt did not receive 3rd IM Pheno at 1900 last night per documentation for low RR. Provider states OK to progress on PO as ordered. Will re-eval as needed.No other complaints IVF infusing as ordered. Pt tried broth this am and it caused pain. Provider aware- pt advised to go slow
--- NOTE | 2025-02-28 11:10 | MHC.CM.PN ---
Pt. lives alone, he does not use home health services or DME. PCP is: Nahum Rob, Pt. can arrange a ride home at [place], DCP: home, self care. CM to follow for DC needs.
--- NOTE | 2025-02-28 11:16 | PC.NURSE ---
Pt ambulated to BR w/ 1 assist, unsteady gait. Instructed pt not to get oob without assistance, pt verbalized understanding, call estrada placed within reach.
--- NOTE | 2025-02-28 13:39 | HO.ADDICT_ITS ---
History of Present Illness Date of Service: 02/28/2025 Chief Complaint: Alcohol withdrawal, acute pancreatitis, EVANGELINA Reason for Consult: AUD Sources of Information: chart reviewed HPI Narrative: Patient is a 54 year old male who presented to [facility] [place] reporting acute alcohol withdrawal sx, including tremor and hallucinations after stopping drinking 6 days earlier. Phenobarbital protocol initiated in ED and patient medically admitted. Found to have hypokalemia and elevated lipase. Chart reviewed as patient was sleeping comfortably when seen by t/w. VS WNL. No restlessness or diaphoresis noted. CIWA scored have been low as well since time of admission. Most recent 7. In ED note, patient reported drinking 1-2 handles of vodka daily, up until 6 days before ED presentation on 02/27. Unclear what prompted abrupt discontinuation of alcohol, however he reported worsening withdrawal sx over time. Per admission note, patient denied any history of seizures. Labs reviewed UDS negative for all substances, with the exception of what was administered at [facility] LFTs elevated at admission ( AST 163 ALT 208) and on recheck today AST 508 ALT 380 Medical Evaluation Reviewed: Yes Review of Systems Review of Systems Yes Other (allowed patient to rest--ROS deferred ) Diagnostics Vital Signs (24Hr): Vital Signs - 24 hr 02/27/25 16:20 02/27/25 16:43 02/27/25 17:52 Temperature 98.6 F 98.5 F Pulse Rate 92 84 82 Respiratory Rate 25 H 21 H 16 Blood Pressure 120/69 106/57 L 111/72 Pulse Oximetry 96 96 95 Oxygen Delivery Method Room Air Room Air Room Air 02/27/25 18:46 02/27/25 20:21 02/27/25 23:10 Temperature 98.8 F Pulse Rate 79 85 71 Respiratory Rate 10 L 12 14 Blood Pressure 123/89 94/48 L 104/66 Pulse Oximetry 97 99 Oxygen Delivery Method Room Air Room Air 02/27/25 23:11 02/28/25 01:04 02/28/25 04:00 Temperature 0 F L Pulse Rate 69 80 95 Respiratory Rate 12 12 20 Blood Pressure 104/66 109/70 119/78 Pulse Oximetry 96 98 98 Oxygen Delivery Method Room Air Room Air Room Air 02/28/25 07:17 02/28/25 11:18 Temperature 98.0 F Pulse Rate 87 88 Respiratory Rate 14 16 Blood Pressure 121/61 123/69 Pulse Oximetry 99 97 Oxygen Delivery Method Room Air Room Air BMI result Body Mass Index 26.2 Labs 02/27/25 12:42 02/28/25 04:47 Labs: Laboratory Results - last 48 hr 02/27/25 02/27/25 02/27/25 12:42 17:53 21:32 WBC 7.9 RBC 5.64 Hgb 16.0 Hct 44.9 MCV 79.6 L MCH 28.4 MCHC 35.6 RDW 14.5 Plt Count 117 L MPV 10.0 Immature Gran % (Auto) 0.4 Neut % (Auto) 83.9 H Lymph % (Auto) 5.3 L [place] % (Auto) 10.3 Eos % (Auto) 0.0 Baso % (Auto) 0.1 Lymph # (Auto) 0.4 L [place] # (Auto) 0.8 Eos # (Auto) 0.0 Baso # (Auto) 0.0 Abs Immat Gran (auto) 0.03 Absolute Neuts (auto) 6.6 Absolute Nucleated RBC 0.000 Nucleated RBC % (auto) 0.0 Sodium 142 143 Potassium 2.9 L* 3.3 Chloride 91 L 98 Carbon Dioxide 29 31 H Anion Gap 25 H 17 BUN 45 H 39 H Creatinine 2.58 H 1.92 H Estim Creat Clear Calc 39.5 53.1 Estimated GFR 26 37 Random Glucose 155 H 125 H Calcium 10.3 H 9.4 D Magnesium 1.6 2.7 H Total Bilirubin 3.0 H Direct Bilirubin AST 163 H ALT 208 H Alkaline Phosphatase 77 Total Protein 8.0 Albumin 5.3 H Lipase 162 H Urine Opiates Screen Not Detected Ur Buprenorphine Scrn Not Detected Ur Oxycodone Screen Not Detected Urine Methadone Screen Not Detected Urine Fentanyl Screen Not Detected Ur Barbiturates Screen POSITIVE H Ur Phencyclidine Scrn Not Detected Ur Amphetamines Screen Not Detected U Benzodiazepines Scrn POSITIVE H Urine Cocaine Screen Not Detected U Marijuana (THC) Screen Not Detected Ethyl Alcohol < 10 02/28/25 04:47 WBC RBC Hgb Hct MCV MCH MCHC RDW Plt Count MPV Immature Gran % (Auto) Neut % (Auto) Lymph % (Auto) [place] % (Auto) Eos % (Auto) Baso % (Auto) Lymph # (Auto) [place] # (Auto) Eos # (Auto) Baso # (Auto) Abs Immat Gran (auto) Absolute Neuts (auto) Absolute Nucleated RBC Nucleated RBC % (auto) Sodium 143 Potassium 3.4 Chloride 100 Carbon Dioxide 33 H Anion Gap 13 BUN 34 H Creatinine 1.54 H Estim Creat Clear Calc 66.3 Estimated GFR 47 Random Glucose 111 Calcium 9.2 Magnesium Total Bilirubin 1.9 H Direct Bilirubin 0.7 H AST 508 H ALT 380 H Alkaline Phosphatase 67 Total Protein 6.8 Albumin 4.4 Lipase Urine Opiates Screen Ur Buprenorphine Scrn Ur Oxycodone Screen Urine Methadone Screen Urine Fentanyl Screen Ur Barbiturates Screen Ur Phencyclidine Scrn Ur Amphetamines Screen U Benzodiazepines Scrn Urine Cocaine Screen U Marijuana (THC) Screen Ethyl Alcohol Mental Status Exam Mental Status Exam Narrative: patient sleeping comfortably, dressed appropriately. no restlessness or diaphoresis noted Medications Medications Current Medications Acetaminophen (Acetaminophen 325 Mg Tablet) 650 mg PO Q6H PRN PRN Reason: Pain, Mild 1-3,fever,headache Last Admin: 02/28/25 04:16 Dose: 650 mg Al Hydroxide/Mg Hydroxide (Magnesium Hydrox/Alum Hydrox 30 Ml Oral.Susp) 30 ml PO Q4H PRN PRN Reason: Heartburn Benzocaine (Throat Lozenge, Medicated Lozenge) 1 lozenge MUCOUS MEM Q2H PRN PRN Reason: Sore Throat Last Admin: 02/28/25 10:55 Dose: 1 lozenge Calcium Carbonate (Calcium Carbonate 750 Mg Tab.Chew) 750 mg PO Q4H PRN PRN Reason: Heartburn Enoxaparin Sodium (Enoxaparin Sodium 40 Mg/0.4 Ml Syringe) 40 mg SUBCUT Q24H [facility] Last Admin: 02/27/25 16:45 Dose: 40 mg Folic Acid 1 mg/ Sodium (Chloride) 50.2 mls @ 100.4 mls/hr IV DAILY [facility] Stop: 03/02/25 09:29 Last Infusion: 02/28/25 09:30 Dose: Infused Potassium Cl/Dextrose/Lact Ringer's (Kcl 20 Meq In 5 % Dex/Lact Rin) 20 meq in 1,000 mls @ 150 mls/hr IVCONT .Q6H40M [facility] Last Admin: 02/28/25 12:47 Dose: 150 mls/hr Magnesium Hydroxide (Milk Of Magnesia 30 Ml Oral.Susp) 30 ml PO DAILY PRN PRN Reason: Constipation Melatonin (Melatonin 3 Mg Tablet) 6 mg PO BEDTIME PRN PRN Reason: Insomnia Ondansetron HCl (Ondansetron Hcl 4 Mg/2 Ml Vial) 4 mg IVPUSH Q6H PRN PRN Reason: Nausea and Vomiting Last Admin: 02/28/25 10:07 Dose: 4 mg Pharmacy Consult (Consult Rx Etoh Phenob Im/Po) 1 each MISCELLANE ONCE PRN; Protocol PRN Reason: Consult order Phenobarbital (Phenobarbital 30 Mg Tablet) 60 mg PO BID [facility]; Protocol Stop: 03/01/25 21:01 Last Admin: 02/28/25 08:49 Dose: 60 mg Phenobarbital (Phenobarbital 30 Mg Tablet) 30 mg PO BID [facility]; Protocol Stop: 03/03/25 21:01 Phenobarbital (Phenobarbital 30 Mg Tablet) 30 mg PO DAILY [facility]; Protocol Stop: 03/05/25 09:01 Prochlorperazine Edisylate (Prochlorperazine Edisylate 10 Mg/2 Ml Vial) 5 mg IVPUSH Q4H PRN PRN Reason: Nausea and Vomiting Last Admin: 02/28/25 04:17 Dose: 5 mg Sodium Chloride (0.9 % Sodium Chloride Flush 3 Ml Syringe) 3 ml IVFLUSH QSHIFT [facility] Last Admin: 02/28/25 10:07 Dose: 3 ml Thiamine HCl (Thiamine Hcl 100 Mg Tablet) 100 mg PO DAILY [facility] Stop: 03/02/25 09:01 Last Admin: 02/28/25 08:49 Dose: 100 mg Allergies Allergies Allergy/AdvReac Type Severity Reaction Status Date / Time No Known Allergies Allergy Verified 02/27/25 12:12 Assessment & Plan Assessment & Plan (1) Alcohol withdrawal syndrome: Qualifiers: Complication of substance-induced condition: with perceptual disturbance Qualified Code(s): F10.932 - Alcohol use, unspecified with withdrawal with perceptual disturbance Status: Acute Code(s): F10.939 - Alcohol use, unspecified with withdrawal, unspecified Assessment and Plan: * pheno taper in place. Discussed elevated liver enzymes with attending provider, who is monitoring and plans to d/c pheno if liver enzymes remain elevated * allow patient to rest with minimal interupptions if possible * will switch to IV thiamine for another day or 2 -then back to PO (2) Alcohol use disorder, severe, dependence: Status: Acute Code(s): F10.20 - Alcohol dependence, uncomplicated Assessment and Plan: * rehab care assistant to follow up and discuss resources and goals related to alcohol use Total time managing care of this patient today __30__ minutes. ON LICENSE OF [facility] Social History Social History Alcohol intake: current Alcohol intake frequency: 3 or more drinks per day Alcohol type: hard liquor Patient Tobacco Use Status: Never used Tobacco Smoked in Last 30 Days: No Use of substances other than those prescribed or required for medical reasons: No Advance Directives: No Advance Directives Information Provided: Yes Do you have a plan to hurt others: No Plan Nutrition Risks: No Nutritional Risk service: No
[2025-02-28 16:10] LABS: Alanine Aminotransferase 477 U/L (0-40); Albumin Level 4.0 g/dL (3.5-5.0); Alkaline Phosphatase 59 U/L (39-117); Aspartate Amino Transferase 602 U/L (5-37); Total Protein 6.0 g/dL (6.5-8.0)
[2025-03-01] MEDS: Throat Lozenge, Medicated LOZENGE 1 LOZENGE MUCOUS MEM ×4 (00:04→21:32)
[2025-03-01 03:19] VITALS: BP 129/85; PULSE 76; RESP 18; TEMP 36.6; O2SAT 98
[2025-03-01] MEDS: KCl 20 mEq in 5 % Dex/Lact Rin 20 MEQ/1,000 ML IV.SOLN 150 MEQ IVCONT (05:21)
[2025-03-01 07:22] VITALS: BP 141/68; PULSE 86; RESP 17; TEMP 36.9; O2SAT 98
[2025-03-01] MEDS: 0.9 % Sodium Chloride Flush 3 ML SYRINGE IVFLUSH ×2 (08:04→16:23)
--- NOTE | 2025-03-01 09:25 | MHC.CM.PN ---
PER BULB WEEDER, Patient is not yet medically cleared for dc (still s/s of ETOH Withdrawal); home is the goal vs Recovery Team intervention. CM will follow.
--- NOTE | 2025-03-01 10:59 | HO.PM.IMPN ---
Subjective Subjective Date of Service: 03/01/25 Review of Systems Follow up alcohol withdrawal and Pancreatitis still feeling anxiety, mild tremors, + nausea Physical Exam Exam: Exam: Appearing in no acute distress lung sounds are clear to auscultation heart regular rate rhythm, clear S1, S2 positive bowel sounds, abdomen is soft, nontender neuro patient is alert x3, no focal deficits Vital Signs: Vital Signs: Last Vital Signs Temp 98.4 F 03/01/25 07:22 Pulse 86 03/01/25 07:22 Resp 17 03/01/25 07:22 BP 141/68 H 03/01/25 07:22 Pulse Ox 98 03/01/25 07:22 O2 Del Method Room Air 03/01/25 07:22 BMI result Body Mass Index 26.2 Objective Data Active Medications Acetaminophen (Acetaminophen 325 Mg Tablet) 650 mg PO Q6H PRN PRN Reason: Pain, Mild 1-3,fever,headache Last Admin: 02/28/25 04:16 Dose: 650 mg Documented By: MICHAEL Al Hydroxide/Mg Hydroxide (Magnesium Hydrox/Alum Hydrox 30 Ml Oral.Susp) 30 ml PO Q4H PRN PRN Reason: Heartburn Benzocaine (Throat Lozenge, Medicated Lozenge) 1 lozenge MUCOUS MEM Q2H PRN PRN Reason: Sore Throat Last Admin: 03/01/25 08:04 Dose: 1 lozenge Documented By: ANGEL Calcium Carbonate (Calcium Carbonate 750 Mg Tab.Chew) 750 mg PO Q4H PRN PRN Reason: Heartburn Enoxaparin Sodium (Enoxaparin Sodium 40 Mg/0.4 Ml Syringe) 40 mg SUBCUT Q24H [facility] Last Admin: 02/28/25 16:41 Dose: 40 mg Documented By: TERRANCE Folic Acid 1 mg/ Sodium (Chloride) 50.2 mls @ 100.4 mls/hr IV DAILY [facility] Stop: 03/02/25 09:29 Last Infusion: 02/28/25 09:30 Dose: Infused Documented By: PAULO Magnesium Hydroxide (Milk Of Magnesia 30 Ml Oral.Susp) 30 ml PO DAILY PRN PRN Reason: Constipation Melatonin (Melatonin 3 Mg Tablet) 6 mg PO BEDTIME PRN PRN Reason: Insomnia Ondansetron HCl (Ondansetron Hcl 4 Mg/2 Ml Vial) 4 mg IVPUSH Q6H PRN PRN Reason: Nausea and Vomiting Last Admin: 02/28/25 20:44 Dose: 4 mg Documented By: NATHAN Pharmacy Consult (Consult Rx Etoh Phenob Im/Po) 1 each MISCELLANE ONCE PRN; Protocol PRN Reason: Consult order Phenobarbital (Phenobarbital 30 Mg Tablet) 60 mg PO BID [facility]; Protocol Stop: 03/01/25 21:01 Last Admin: 03/01/25 08:04 Dose: 60 mg Documented By: ANGEL Phenobarbital (Phenobarbital 30 Mg Tablet) 30 mg PO BID [facility]; Protocol Stop: 03/03/25 21:01 Phenobarbital (Phenobarbital 30 Mg Tablet) 30 mg PO DAILY [facility]; Protocol Stop: 03/05/25 09:01 Prochlorperazine Edisylate (Prochlorperazine Edisylate 10 Mg/2 Ml Vial) 5 mg IVPUSH Q4H PRN PRN Reason: Nausea and Vomiting Last Admin: 02/28/25 16:39 Dose: 5 mg Documented By: TERRANCE Sodium Chloride (0.9 % Sodium Chloride Flush 3 Ml Syringe) 3 ml IVFLUSH QSHIFT [facility] Last Admin: 03/01/25 08:04 Dose: 3 ml Documented By: ANGEL Thiamine HCl (Thiamine Hcl 100 Mg Tablet) 100 mg PO DAILY [facility] Stop: 03/02/25 09:01 Last Admin: 03/01/25 08:04 Dose: 100 mg Documented By: ANGEL Labs 02/27/25 12:42 02/28/25 04:47 Labs: Laboratory Results - last 24 hr 02/28/25 15:35 Total Bilirubin 1.4 H Direct Bilirubin 0.6 H AST 602 H ALT 477 H Alkaline Phosphatase 59 Total Protein 6.0 L Albumin 4.0 Assessment and Plan (1) Alcohol withdrawal syndrome: Status: Acute Plan 54-year-old male with severe alcohol use disorder presenting with alcohol withdrawal symptoms (tremors, tachycardia, nausea, vomiting), hypokalemia, acute pancreatitis (elevated lipase), transaminitis, and acute kidney injury (likely pre-renal from volume depletion). No evidence of biliary obstruction on imaging. Worsening transaminitis only Bili improving Possibly secondary to phenobarbital, stopped Check hepatitis panel GI consultation Alcohol withdrawal doing better Continue phenobarbital protocol Nutritional support: Thiamine, folate, multivitamins. Hypokalemia. Resolved IV potassium replacement Monitor electrolytes closely, monitor mag Acute pancreatitis, likely alcohol related. Resolved s/p IV fluids, pain control, and antiemetics. advance diet Acute kidney injury likely pre-renal state, resolving IV fluid resuscitation. Monitor renal function and urine output. Disposition: Admit to monitored setting for ongoing management and withdrawal monitoring. Social work consult for alcohol cessation resources and support. Follow-up: Serial labs to monitor electrolytes, renal function, LFTs, and withdrawal symptoms. DVT prophylaxis: lovenox Full code Quality Stroke Does the patient have a stroke diagnosis?: No VTE Prior VTE?: No VTE Risk Level:: Medical - moderate - high VTE Device Contraindication: Treatment Not Indicated VTE Drug Contraindication: N/A - Med Ordered
--- NOTE | 2025-03-01 11:13 | P.CNGI_ITS ---
History of Present Illness Data of Consult Service Date: 03/01/25 Primary Care Provider: Nahum Rob DO, MD HPI Reason for consult: abn LFT 54-year-old male with no significant past medical history who I am seeing for assessment for abn LFT. Patient is a binge drinker, and had been binging on vodka fro several days before stopping cold turkey 6 d ago. He then noted nausea, shakes, non bloody emesis and upper abdominal discomfort with poor PO intake so came to ED> He has done this in the past with similar symptoms. He is unsure if he has had seizures but found himself on the ground a few times with no recollection. Denies cocaine or other drug use. No recent sick contacts or travel. denies taking herbal meds or nsaids, tylenol. Due to raised transaminases he had US which did not show cholelithiasis or common bile duct obstruction. Currently feeling more relaxed. Review of Systems 2 Review of Systems: Constitutional : No Weight loss, No Fever, No Chills ENT/Mouth : No sore throat, No Rhinorrhea Eyes: No Swelling, No Redness Cardiovascular : No Chest Pain, No SOB, No Edema Respiratory : No Cough, No Sputum, No Wheezing Gastrointestinal : see HPI Genitourinary : NO Dysuria, No Urinary Frequency, No Hematuria, No Urgency Musculoskeletal : no joint pain, No Myalgias, No Joint Swelling Skin : No Skin Lesions, No rash Neuro : No Weakness, No Numbness, No Dizziness, No Headache Psych : No Anxiety/Panic, No Depression Heme/Lymph: No Bruising, No Lymphadenopathy Endocrine : No Polyuria, No Polydipsia All other systems reviewed and are negative. [facility] Family History Pertinent family history: father- alcoholic Social History Social History Household Members: None Housing: House Alcohol intake: current Alcohol intake frequency: 3 or more drinks per day Alcohol type: hard liquor Patient Tobacco Use Status: Never used Tobacco service: No Meds Allergies Allergy/AdvReac Type Severity Reaction Status Date / Time No Known Allergies Allergy Verified 02/27/25 12:12 Active Medications: Current Medications Acetaminophen (Acetaminophen 325 Mg Tablet) 650 mg PO Q6H PRN PRN Reason: Pain, Mild 1-3,fever,headache Last Admin: 02/28/25 04:16 Dose: 650 mg Al Hydroxide/Mg Hydroxide (Magnesium Hydrox/Alum Hydrox 30 Ml Oral.Susp) 30 ml PO Q4H PRN PRN Reason: Heartburn Benzocaine (Throat Lozenge, Medicated Lozenge) 1 lozenge MUCOUS MEM Q2H PRN PRN Reason: Sore Throat Last Admin: 03/01/25 08:04 Dose: 1 lozenge Calcium Carbonate (Calcium Carbonate 750 Mg Tab.Chew) 750 mg PO Q4H PRN PRN Reason: Heartburn Enoxaparin Sodium (Enoxaparin Sodium 40 Mg/0.4 Ml Syringe) 40 mg SUBCUT Q24H [facility] Last Admin: 02/28/25 16:41 Dose: 40 mg Folic Acid 1 mg/ Sodium (Chloride) 50.2 mls @ 100.4 mls/hr IV DAILY [facility] Stop: 03/02/25 09:29 Last Infusion: 02/28/25 09:30 Dose: Infused Magnesium Hydroxide (Milk Of Magnesia 30 Ml Oral.Susp) 30 ml PO DAILY PRN PRN Reason: Constipation Melatonin (Melatonin 3 Mg Tablet) 6 mg PO BEDTIME PRN PRN Reason: Insomnia Ondansetron HCl (Ondansetron Hcl 4 Mg/2 Ml Vial) 4 mg IVPUSH Q6H PRN PRN Reason: Nausea and Vomiting Last Admin: 02/28/25 20:44 Dose: 4 mg Pharmacy Consult (Consult Rx Etoh Phenob Im/Po) 1 each MISCELLANE ONCE PRN; Protocol PRN Reason: Consult order Prochlorperazine Edisylate (Prochlorperazine Edisylate 10 Mg/2 Ml Vial) 5 mg IVPUSH Q4H PRN PRN Reason: Nausea and Vomiting Last Admin: 02/28/25 16:39 Dose: 5 mg Sodium Chloride (0.9 % Sodium Chloride Flush 3 Ml Syringe) 3 ml IVFLUSH QSHIFT [facility] Last Admin: 03/01/25 08:04 Dose: 3 ml Thiamine HCl (Thiamine Hcl 100 Mg Tablet) 100 mg PO DAILY [facility] Stop: 03/02/25 09:01 Last Admin: 03/01/25 08:04 Dose: 100 mg Home Medications ?Medication ?Instructions ?Recorded ?Confirmed ?Last Taken ?Type No Known Home Meds 02/27/25 02/27/25 Un known History Physical Exam 2 Exam: Exam: EXAM: GENERAL: The patient is well developed and nontoxic. VITAL SIGNS:see workflow HEENT: Nonicteric sclerae, PERRLA, EOMI. Oropharynx clear. Moist mucous membranes. Conjunctivae appear well perfused. No thyroid mass. CHEST: Chest wall is nontender. HEART: Regular rate and rhythm without murmurs. LUNGS: Clear to auscultation bilaterally. ABDOMEN: Soft, positive bowel sounds, nontender, no organomegaly.no flank tenderness SKIN: No rash, no excessive bruising, petechiae, or purpura. NEUROLOGIC: Cranial nerves II-XII intact without motor/sensory deficit. mild tremor Psych: normal affect Vital Signs: Vital Signs: Last Vital Signs Temp 98.4 F 03/01/25 07:22 Pulse 86 03/01/25 07:22 Resp 17 03/01/25 07:22 BP 141/68 H 03/01/25 07:22 Pulse Ox 98 03/01/25 07:22 O2 Del Method Room Air 03/01/25 07:22 BMI result Body Mass Index 26.2 Results Labs 02/27/25 12:42 02/28/25 04:47 Labs: Liver Function 02/28/25 Range/Units 15:35 Total Bilirubin 1.4 H (0.0-1.0) mg/dL Direct Bilirubin 0.6 H (0.0-0.5) mg/dL AST 602 H (5-37) U/L ALT 477 H (0-40) U/L Alkaline Phosphatase 59 (39-117) U/L Albumin 4.0 (3.5-5.0) g/dL Assessment and Plan (1) Elevated LFTs: Status: Acute Plan 1/ Abn LFT, mostly AST suspect muscle origin , bili is mild elevated going against ischemic injury PLAN: 1/ Check CPK, Hep serologies, acetaminophen level, ceruloplasmin, celiac serology 2/ fluids and resuscitation, treat DT 3/ chec INR, if going up then may need liver bx 4/ avodi nsaids, liver toxins Procedures Date of Service Date of Service: 03/01/25
[2025-03-01 11:34] VITALS: BP 148/91; PULSE 84; RESP 18; TEMP 36.8; O2SAT 97
[2025-03-01 12:09] LABS: Alanine Aminotransferase 472 U/L (0-40); Albumin Level 4.2 g/dL (3.5-5.0); Alkaline Phosphatase 65 U/L (39-117); Aspartate Amino Transferase 384 U/L (5-37); Total Protein 6.3 g/dL (6.5-8.0)
[2025-03-01 14:08] LABS: HBS Num1 40.24 mIU/mL (0-7.99); HBc Num1 0.04 S/CO (0.00-0.79); HBsAGNum1 0.48 S/CO (0.00-0.99); Hepatitis A Antibody IgM 0.12 Index (0-0.79); Hepatitis B Surface Antigen Negative (Negative); ~HepC Num1 0.07 S/CO (0.00-0.79); ~Hepatitis A Antibody IgM Nonreactive (Nonreactive); ~Hepatitis B Surface Antibody REACTIVE (Nonreactive); ~Hepatitis C Antibody Nonreactive (Nonreactive)
[2025-03-01 16:00] VITALS: BP 136/82; PULSE 87; RESP 17; TEMP 36.6; O2SAT 97
[2025-03-01] MEDS: Magnesium Hydrox/Alum Hydrox 30 ML ORAL.SUSP PO (16:01)
[2025-03-01 18:23] LABS: Acetaminophen LAB < 3 mcg/mL (<30)
[2025-03-01 19:22] VITALS: BP 110/65; PULSE 97; RESP 20; TEMP 37; O2SAT 98
[2025-03-01 23:52] VITALS: BP 123/78; PULSE 83; RESP 16; TEMP 37.3; O2SAT 98
[2025-03-02] MEDS: 0.9 % Sodium Chloride Flush 3 ML SYRINGE IVFLUSH ×2 (00:30→10:18)
[2025-03-02] MEDS: Throat Lozenge, Medicated LOZENGE 1 LOZENGE MUCOUS MEM ×2 (02:49→10:20)
[2025-03-02 04:00] VITALS: BP 128/81; PULSE 87; RESP 16; TEMP 37.1; O2SAT 96
[2025-03-02 07:02] LABS: Alanine Aminotransferase 456 U/L (0-40); Albumin Level 4.3 g/dL (3.5-5.0); Alkaline Phosphatase 83 U/L (39-117); Anion Gap 13 (12-20); Aspartate Amino Transferase 311 U/L (5-37); Blood Urea Nitrogen 11 mg/dL (9-16); Calcium 9.2 mg/dL (8.4-10.2); Carbon Dioxide 26 mmol/L (22-29); Chloride 104 mmol/L (96-108); Creatinine Clr Calc Pharmacy 113.4; Estimated Glomerular Filt Rate > 60; Potassium 3.6 mmol/L (3.3-5.1); Sodium 139 mmol/L (135-145); Total Protein 6.7 g/dL (6.5-8.0)
[2025-03-02 08:00] VITALS: BP 144/84; PULSE 91; RESP 17; TEMP 36.6; O2SAT 97
--- NOTE | 2025-03-02 08:19 | P.DS_ITS ---
DS: Providers Provider Date of Service: 03/02/25 Date of admission: 02/27/25 16:05 Date of discharge: 03/02/25 Primary care physician: Nahum Rob DO, MD Consults: 02/27/25 16:11 Addiction Medicine Provider Routine Consulting Provider: Addiction Covering Reason for consultation: alcohol dep 03/01/25 11:04 Consult to Gastroenterology [place]ine [place]ing [place] [facility] [place] Reason for consultation: worsening liver enzymes 03/01/25 16:20 Consult to Comprehensive Care Routine Consulting Provider[place] [facility] [place] [facility] DS: Diagnosis Discharge Diagnosis (1) Elevated LFTs: Status: Acute DS: Summary Hospital Course Hospital Course: History and physical as per admitting provider. The patient is a 54-year-old male with no significant past medical history who reports daily consumption of approximately a handle of vodka. Six days ago, he decided to self-detox and abruptly stopped drinking. Since then, he has experienced progressive tremors, nausea, vomiting, and inability to keep food down, which ultimately prompted him to seek medical attention. He denies any prior history of withdrawal seizures or delirium tremens. No recent sick contacts or travel. Alcohol withdrawal. Treated with phenobarbital, multivitamins, IV folic acid. Patient has been eating and drinking. He was seen by recovery team and plans for outpatient follow up. He is encouraged to not drink any alcohol. Transaminitis was secondary to alcohol and did worsen during the 2nd day and IV could be related to phenobarbital versus muscle wasting with mildly elevated CPK. Phenobarbital stopped and LFTs have trended down. Hypokalemia. Resolved with IV potassium replacement Acute pancreatitis, likely alcohol related. Resolved with IV fluids, pain control and antiemetics. Diet advanced to regular. Acute kidney injury likely pre-renal state, resolved with IV fluid resuscitation Time Attestation Discharge Coordination Time (in mins): 42 Quality: Safe Use of Opioids Does Pt have an Active Cancer Diagnosis on the Problem List?: No Quality: Stroke Does the patient have a stroke diagnosis?: No Physical Exam Exam: Exam: Appearing in no acute distress head is normocephalic atraumatic eyes pupils are PERRLA sclera is anicteric mouth throat mucous membranes are intact and moist neck is supple no lymphadenopathy, no JVD noted lung sounds are clear to auscultation heart regular rate rhythm, clear S1, S2 positive bowel sounds, abdomen is soft, nontender neuro patient is alert x3, no focal deficits Vital Signs: Vital Signs: Last Vital Signs Temp 97.8 F 03/02/25 08:00 Pulse 91 03/02/25 08:00 Resp 17 03/02/25 08:00 BP 144/84 H 03/02/25 08:00 Pulse Ox 97 03/02/25 08:00 O2 Del Method Room Air 03/02/25 08:00 BMI result Body Mass Index 26.2 DS: Data Data Completed and Pending Labs on day of discharge: Laboratory Results - last 24 hr 03/01/25 03/01/25 03/02/25 11:44 11:45 06:35 Sodium 139 Potassium 3.6 Chloride 104 Carbon Dioxide 26 Anion Gap 13 BUN 11 Creatinine 0.90 Estim Creat Clear Calc 113.4 Estimated GFR > 60 Random Glucose 99 Calcium 9.2 Total Bilirubin 1.5 H 1.2 H Direct Bilirubin 0.6 H 0.5 AST 384 H 311 H ALT 472 H 456 H Alkaline Phosphatase 65 83 Total Creatine Kinase 603 H 426 H Total Protein 6.3 L 6.7 Albumin 4.2 4.3 Acetaminophen < 3 Hepatitis A IgM Ab Nonreactive Hep Bs Antigen Negative Hep Bs Antibody REACTIVE Hep B Core Total Ab Nonreactive Hepatitis C Ab (EIA) Nonreactive Discharge Plan Discharge Anticipated Discharge Date/Time: 03/02/25 08:15 Patient Disposition: Home, Self-Care Discharge Diagnosis: Alcohol withdrawal syndrome Referrals: [facility] [Other] - 03/02/25 8:00 am Referral Note: In the hospital on the 4th floor Walk over upon D/C. Skyla: [facility] [Other] - 1 Week Referral Note: A referral has been sent on your behalf for recovery coaching. Please follow up with Skyla upon Discharge. Nahum Rob DO, MD [Primary Care Provider, Internal Medicine] - 1 Week Discharge Medications: New thiamine mononitrate (vit B1) 100 mg Tablet 100 mg PO DAILY Qty: 30 0RF multivitamin Tablet 1 tab PO DAILY Qty: 30 0RF folic acid 1 mg tablet 1 mg PO DAILY Qty: 30 0RF Discharge Orders: Discharge Order (Routine); Ordered 03/02/25 Ordered By: Twyla Snyder Diet: Advance to usual diet Activity on Discharge: As tolerated Stand Alone Forms: Patient Portal Discharge page Print Language: Algerian Care Plan Goals: Avoid all alcoholic beverages Health Concerns: Alcohol withdrawal syndrome Transaminitis Plan of Treatment: Follow up with recovery auditor outpatient Follow up with primary care provider as needed Take all medications as prescribed Assessment: See discharge summary
[2025-03-02 09:01] LABS: Hepatitis A Antibody IgM 0.14 Index (0-0.79); ~Hepatitis A Antibody IgM Nonreactive (Nonreactive)
--- NOTE | 2025-03-02 11:00 | MHC.CM.PN ---
Addendum entered by Marianne De Anda 03/02/25 12:50: Patient changed his mind and wants to go moss picker his car in [place] rather than the [place] address. Lyft ride that CM set up was cancelled and per RN, Patient arranged for his own uber to [place]. Addendum entered by Marianne De Anda 03/02/25 12:25: Lyft moss picker time was changed to 12:30PM, per Rn's request. Original Note: Patient has been medically cleared for dc to home today, self care. CM has arranged a LYFT to transport Patient to home today at noon. RN is aware.
[2025-03-02 11:22] VITALS: BP 117/65; PULSE 96; RESP 17; TEMP 37.2; O2SAT 97
[2025-03-02 15:24] LABS: HCV Log PCR <1.18 NOT DETECTED Log IU/mL (NOT DETECTED); HepC Viral Load <15 NOT DETECTED IU/mL (NOT DETECTED)
[2025-03-04 19:48] LABS: Hepatitis E Virus HEV IgG NOT DETECTED; Hepatitis E Virus HEV IgM NOT DETECTED
== END 2025-03-02 12:54 | disposition home or self-care (01) | DRG 282 ==
LOC: HO.ED 15:58 → HO.EDOVER 16:22 → HO.IMC 02-28 19:22
PROVIDERS: Internal Medicine; Internal Medicine Gastroenterology; Admitting Provider Internal Medicine; Emergency Provider Student in an Organized Health Care Education/Training Program; PCP Internal Medicine; Visit Provider Nurse Practitioner Acute Care
DX: K85.20 Alcohol induced acute pancreatitis without necrosis or infection (principal); N17.9 Acute kidney failure, unspecified; F10.239 Alcohol dependence with withdrawal, unspecified; E87.6 Hypokalemia; Z79.899 Other long term (current) drug therapy
CPT/HCPCS: 36415; 76705; 80048; 80053; 80076; 80143; 80307; 82248; 82550; 83690; 83735; 85025; 86704; 86706; 86709; 86790; 86803; 87340; 87522; 93005; 99285; J0737; J1308; J1650; J1808; J2250; J2405; J2470; J2560; J3411; J3475; J3480; J7120; S9485

== ENCOUNTER → 2025-02-27 12:23 | Outpatient (BNV) | payer BC, SELFPAY | PROVIDERS: Admitting Provider Internal Medicine; Emergency Provider Student in an Organized Health Care Education/Training Program; PCP Internal Medicine; Visit Provider Internal Medicine Cardiovascular Disease | DX: R00.0 Tachycardia, unspecified (principal); I44.4 Left anterior fascicular block | CPT/HCPCS: 93010 ==

== ENCOUNTER → 2025-02-27 13:47 | Outpatient (BNV) | payer BC, SELFPAY | PROVIDERS: Emergency Provider Student in an Organized Health Care Education/Training Program; Visit Provider Radiology Diagnostic Radiology | DX: K81.9 Cholecystitis, unspecified (principal) | CPT/HCPCS: 76705 ==

== ENCOUNTER → 2025-02-27 16:05 | Outpatient (BNV) | payer BC, SELFPAY | PROVIDERS: Admitting Provider Internal Medicine; Emergency Provider Student in an Organized Health Care Education/Training Program; Visit Provider Nurse Practitioner Acute Care | DX: F10.932 Alcohol use, unspecified with withdrawal with perceptual disturbance (principal) | CPT/HCPCS: 99223; 99232 ==

== ENCOUNTER → 2025-02-27 16:05 | Outpatient (BNV) | payer BC, SELFPAY | PROVIDERS: Admitting Provider Internal Medicine; Emergency Provider Student in an Organized Health Care Education/Training Program; Visit Provider Nurse Practitioner Psychiatric/Mental Health | DX: F10.932 Alcohol use, unspecified with withdrawal with perceptual disturbance (principal); F10.20 Alcohol dependence, uncomplicated | CPT/HCPCS: 99252 ==

== ENCOUNTER → 2025-02-27 16:05 | Outpatient (BNV) | payer BC, SELFPAY | PROVIDERS: Admitting Provider Internal Medicine; Emergency Provider Student in an Organized Health Care Education/Training Program; PCP Internal Medicine; Visit Provider Internal Medicine Gastroenterology | DX: R79.89 Other specified abnormal findings of blood chemistry (principal) | CPT/HCPCS: 99254 ==

== ENCOUNTER 2025-03-02 15:01 | Outpatient (AMB) | payer BC, SELFPAY ==
--- NOTE | 2025-03-02 15:10 | A.OFFVISCC_ITS ---
Vital Signs 03/02/25 15:15 Height 6 ft 3 in Weight 214 lb BMI 26.7 BP 148/80 H Pulse 78 Pulse Oximetry (%) 97 Intake Visit Reasons: MAT Intake Allergies No Known Allergies Allergy (Verified 03/02/25 15:16) HPI Comments Details: A 54-year-old male presents for a MAT intake r/t AUD was discharged today from [facility] for alcohol withdrawal. Reports was drinking a handle of vodka per day and notes periods of several years of sobriety in the past. 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 Receptive to starting on a medication to reduce cravings for alcohol. Has attended AA in the past and interested in a peer coach wirer. Review of Systems Const All systems reviewed & are unremarkable except as noted in HPI and below Physical Exam Vital Signs: Last Vital Signs Pulse 78 03/02/25 15:15 BP 148/80 H 03/02/25 15:15 Pulse Ox 97 03/02/25 15:15 BMI result Body Mass Index 26.7 Results AMB 14 Panel Urine Drug Screen Urine Marijuana (THC) Negative Last Edit by Abbey Lo CMA on 5 15:37 Urine Cocaine Negative Last Edit by Abbey Lo CMA on 03/02/25 15:37 Urine Morphine Negative Last Edit by Abbey Lo CMA on 03/02/25 15:37 Urine Methamphetamine Negative Last Edit by Abbey Lo CMA on 5 15:37 Urine Amphetamine Negative Last Edit by Abbey Lo CMA on 03/02/25 15 :37 Urine Benzodiazepine Negative Last Edit by Abbey Lo CMA on 03/02/25 15:37 Urine Barbiturates Positive Last Edit by Abbey Lo CMA on 03/02/25 15:37 Urine Methadone Negative Last Edit by Abbey Lo CMA on 03/02/25 15:3 7 Urine Buprenorphine Negative Last Edit by Abbey Lo CMA on 03/02/25 15:37 Urine Tricyclic Antidepressant Negative Last Edit by Abbey Lo CMA o n 03/02/25 15:37 Urine MDMA Negative Last Edit by Abbey Lo CMA on 03/02/25 15:37 Urine Oxycodone Negative Last Edit by Abbey Lo CMA on 03/02/25 15:3 7 Urine Phencyclidine Negative Last Edit by Abbey Lo CMA on 03/02/25 15:37 Urine Propoxyphene Negative Last Edit by Abbey Lo CMA on 03/02/25 15:37 Results Reviewed Results Reviewed: Laboratory Last Values POC Urine Buprenorphine Negative 03/02/25 15:34 POC Urine Morphine Negative 03/02/25 15:34 POC Urine Oxycodone Negative 03/02/25 15:34 POC Urine Methadone Negative 03/02/25 15:34 POC Urine Propoxyphene Negative 03/02/25 15:34 POC Urine Barbiturates Positive 03/02/25 15:34 POC U Tricyclic Antidpr Negative 03/02/25 15:34 POC Urine PCP Negative 03/02/25 15:34 POC Ur Amphetamines Negative 03/02/25 15:34 POC Ur Methamphetamine Negative 03/02/25 15:34 POC Urine MDMA Negative 03/02/25 15:34 POC Ur Benzodiazepine Negative 03/02/25 15:34 POC Urine Cocaine Negative 03/02/25 15:34 POC Ur Marijuana (THC) Negative 03/02/25 15:34 PFSH Social History Household Members: None Housing: House Alcohol intake: current Alcohol intake frequency: 3 or more drinks per day Alcohol type: hard liquor Patient Tobacco Use Status: Never used Tobacco service: No Assessment & Plan Assessment & Plan (1) Alcohol use disorder, severe, dependence: Code(s): F10.20 - Alcohol dependence, uncomplicated Category: Medical Plan The plan is to start on acamprosate 666 mg TID, continue with folic acid, thiamine and follow up in one month or sooner if needed. Education provided on acamprosate including purpose, side effects, and general medication information. Encouraged to reconnect with a mental health therapist and importance of maintaining sobiety. commissions specialist will follow up with referral for a coach wirer. Orders: Orders AMB 14 Panel Urine Drug Screen 03/02/25 Z51.81 - Encounter for therapeutic drug level monitoring Medications: New acamprosate Take 2 tablets three times per day 666 mg (2 x 333 mg) PO TID 180 tabs 0RF 30 days Patient Instructions: - Start on acamprosate as prescribed and continue with folic acid and thiamine. - Reconnect with mental health therapist. - Follow-up in 1 month or sooner if needed. - Call with questions, concerns, or to report side effects/new onset of symptoms to [facility]3]. - The patient verbalized understanding and agreed with plan of care. MAT Intake Nursing Intake Reason for visit: MAT Are you currently using?: Yes What are you taking?: Alcohol Referral Source: Inpatient - from [facility] to [facility] Substance Abuse History Substance Abuse History (includes route, frequency and quantity): Oxycodone product, Cocaine, Other opioids, Alcohol, Marijuana and Tobacco Age of first use: 16 alcohol Social History Domestic Violence concerns: no Children: 2 16 and 17 live in [place] with their mother- recent divorce Do you have a support system?: some family- not strong Current mode of transportation?: drive self Where are you currently residing?: [place] LMP: N/A IV Drug Use Have you ever shared needles?: No Have you ever belonged to a needle exchange program?: No Do you buy needles at a pharmacy?: No Have you ever overdosed?: No Number of lifetime overdoses: 0 Have you ever been hospitalized for an overdose?: No Was Naloxone administered?: Not applicable Recovery History Have you had any periods of recovery?: Yes What is your longest time in recovery?: 32 months When was the last time you were in recovery?: relapse in April of 2023 Have you ever had inpatient treatment for your substance abuse disorder?: Yes Have you been in an inpatient detoxification program?: Yes Have you been in an inpatient Rehab/Long-Term house?: Yes Have you been in an outpatient Methadone Maintenance program?: No Have you been in an outpatient Suboxone Maintenance program?: No Have you been in an AA/NA support program?: Yes Have you had a Recovery Support Public Speaking Instructor?: No (Reaching out to solidify Referral - Skyla) Have you had Peer Support?: No Behavioral Health History Do you have a current provider? If so, who?: no diagnosis: self DX anxiety and Depression History of other addictive behavior: no History of inpatient psychiatric hospitalization? If so, how many? Most Recent? Where?: no History of self harming thoughts?: Yes (Passive thoughts to in an accident - has never thought of self harm) History of homicidal or suicidal intentions?: No Medical Conditions Endocarditis?: No Skin Infection: No Seizure related to withdrawal or overdose: No Head or brain injury: No Hepatitis A (if yes, have you been treated?): No Hepatitis B (if yes, have you been treated?): No Hepatitis C (if yes, have you been treated?): No HIV (if yes, have you been treated?): No TB (if yes, have you been treated?): No Other: No Do you have any chronic pain conditions?: no Legal History History of incarceration: No (overnight) Court mandated programs: No Pending court cases: No DCF involvement: No
[2025-03-02 15:15] VITALS: BP 148/80; PULSE 78; O2SAT 97; BMI 26.7
--- OUTSIDE RECORDS SUMMARY | 2025-03-02 17:32 | XMS_ITS | Encounter Summary ---
Author Organization [facility] Address [address] [place] [phone] Phone Care Team Providers Care Auditor Supervisor Name Role Phone Pcp, Unknown Primary Care Provider Nahum Dorantes DO Primary Care Provider [phone] Encounter Details Date Type Department Care Team (Late st Contact Info) Description 09/20/2024 Procedure Pass [facility], Ct Scan - [address] [address] Social History Tobacco Use Types Packs/Day Years [...] 09/20/2024 5:16 PM Leon Morris RN * [place] Suicide Severity Rating Scale (Screener/Recent Self-Report) Question [...] on filedocumented in this encounter Care Teams Auditor Supervisor Relationship Specialty Start Date End Date Pcp, Unknown PCP - General 09/20/24 09/21/24 Nahum Rob DO [address] [place] [id number] PCP - General Internal Medicine 09/22/24 documented as of this encounter Additional Source Comments The information contained in this document represents components of the legal health record. It is not the complete legal health record.[facility]
--- OUTSIDE RECORDS SUMMARY | 2025-03-02 17:32 | XMS_ITS | Clinical Summary ---
Author Organization [facility] Address [address] [place] [phone] Phone Care Team Providers Care Tanker Driver Name Role Phone JanelNahum pennington Primary Care Provider [phone] Allergies No known active allergies Medications buPROPion [...] oral naltrexone Have put in application to [facility], will likely go there after d/c to [...] on file Insurance PPO EPO PPO EPO [facility] [place] [address] [place] [address] [place] [address] [place] [address] PPO EPO [facility] PPO EPO [place] [address] [place] [address] PPO EPO [facility] PPO EPO Advance Directives For more information, please contact: [phone] (9AM - 5PM [facility], Friday-Friday) * Full Code (Latest Code Status on File) Date Activated Date Inactivated Comments 09/21/2024 8:13 AM Question Answer Comments Code Status Confirmed With: Other (specify below ) Care Teams Tanker Driver Relationship Specialty Start Date End Date Nahum Rob DO [address] [place] [phone] PCP - General Internal Medicine 09/22/24 Additional Source Comments The information contained in this document represents components of the legal health record. It is not the complete legal health record.[facility]
--- OUTSIDE RECORDS SUMMARY | 2025-03-02 17:32 | XMS_ITS | Clinical Summary ---
Author Organization [address] Address [address] [place] [phone] Phone Care Team Providers Care Deputy Prosecuting Attorney Name Role Phone ToniNahum melendez Primary Care Provider Allergies No known active allergies Medications No [...] LAB CHEMISTRY METHOD 05/11/2024 11:57 AM EST [facility] Triglycerides 76 0 - 150 mg/dL LAB CHEMISTRY METHOD 05/11/2024 11:57 AM EST [facility] HDL 57 >=40 mg/dL LAB CHEMISTRY METHOD 05/11/2024 11:57 AM EST [facility] LDL Calculated 117(H) 0 - 100 mg/dL LAB CHEMISTRY METHOD 05/11/2024 11:57 AM EST [facility] VLDL Cholesterol Parmjit 15.2 mg/dL LAB CHEMISTRY METHOD 05/11/2024 11:57 AM EST [facility] Non HDL Chol. (LDL+VLDL) 132 <145 mg/dL LAB CHEMISTRY METHOD 05/11/2024 11:57 AM EST [facility] Chol/HDL Ratio 3.3 0.0 - 4.4 LAB CHEMISTRY METHOD 05/11/2024 11:57 AM EST [facility] Blood Venous blood specimen / Unknown Venipuncture / Unknown 05/11/2024 9:48 AM EST 05/11/2024 9:48 AM EST us Delfino Teran LAB BLOOD ORDERABLES Final Resul t [facility] [address] [place] [address], from Last 3 Months or Most Recently Relevant to Health Maintenance Insurance [facility] Care Teams Deputy Prosecuting Attorney Relationship Specialty Start Date End Date Nahum Rob DO [address] [place] [phone] PCP - General 11/28/21
--- OUTSIDE RECORDS SUMMARY | 2025-03-02 17:32 | XMS_ITS | Patient Health Record ---
Author Organization [facility] Address [address] [place] [phone] Care Team Providers Care Manager Wholesale Name Role Phone Darron ALFORD, Nahum Primary Care Provider Lenora Maxwell Unavailable [phone] Allergies No Known Allergies Reason For Referral [...] Status Risk Notes Problem Acquired hallux valgus ([id number]) Hallux valgus (acquired), right foot (M20.11) Active confirmed Plan Of Treatment No Information Insurance Providers Payer Name Payer Address Payer Phone Subscriber Number Group Number Insured Name Patient Relationship to Insured Coverage Start Date Coverage End Date [facility] [address] [address] [place] [phone] [id number] Maurice Self - patient is the insured Medical (General) History Medical History History ICD Code Arthritis Back,Hip,and Knee pain Broken bones Chicken pox Bone implants/screws Surgical History Surgery Date(Month/Year) broken arm(s) 1994 knee surgery, left 2006
== END 2025-03-02 16:14 | disposition home or self-care (01) ==
LOC: HO.HCC 15:01
PROVIDERS: PCP Internal Medicine; Visit Provider Clinical Nurse Specialist Psychiatric/Mental Health
DX: F10.20 Alcohol dependence, uncomplicated (principal)
CPT/HCPCS: 99203

== ENCOUNTER → 2025-03-02 15:01 | Outpatient (BNVA) | payer BC, SELFPAY | PROVIDERS: PCP Internal Medicine; Visit Provider Clinical Nurse Specialist Psychiatric/Mental Health | DX: F10.20 Alcohol dependence, uncomplicated (principal); Z51.81 Encounter for therapeutic drug level monitoring; Z79.899 Other long term (current) drug therapy | CPT/HCPCS: 80307 ==

== ENCOUNTER 2025-06-01 14:14 | Inpatient (IN) | payer BC, SELFPAY ==
[2025-06-01] VITALS (7 sets, daily range): BP systolic 111–166; BP diastolic 60–106; PULSE 80–130; RESP 16–23; TEMP 36.4–37; O2SAT 93–98; BMI 29.0
--- NOTE | 2025-06-01 | ECG_ITS ---
Test Reason : tachy Blood Pressure : */* mmHG Vent. Rate : 99 BPM Atrial Rate : 99 BPM P-R Int : 190 ms QRS Dur : 92 ms QT Int : 356 ms P-R-T Axes : 26 -51 3 degrees QTcB Int : 456 ms Normal sinus rhythm Left axis deviation Septal infarct , age undetermined Abnormal ECG When compared with ECG of 27-Feb-2025 12:34, DC interval has increased ST no longer depressed in Inferior leads T wave inversion no longer evident in Anterolateral leads Referred By: Leola Hidalgo Electronically Signed By: CATY MEYER MD
--- NOTE | ~2025-06-01 | XR_ITS ---
EXAMINATION: XR ABDOMEN KUB CLINICAL INDICATION: Abd pain , question constipation COMPARISON: None available. TECHNIQUE: AP view of the abdomen. FINDINGS: No bowel dilatation to suggest obstruction. Small amount of probable stool load identified in the expected location of the ascending colon and descending colon. No suspicious radiopaque densities. Osseous structures appear intact. XR/XR KUB IMPRESSION: Small amount of probable stool load in the expected location of the ascending and descending colons. Electronically signed by: Yareli Herrera MD 06/01/2025 05:24 PM EST
--- NOTE | ~2025-06-01 | XR_ITS ---
EXAMINATION: XR RIBS, BILATERAL CLINICAL INFORMATION: rib cage pain and cough COMPARISON: None available. TECHNIQUE: 3 views of the bilateral ribs were obtained. FINDINGS: Lungs are clear. No consolidation, pneumothorax, or pleural effusion. The cardiomediastinal silhouette is within normal limits. Osseous structures are unremarkable. No displaced rib fractures identified. XR/XR ribs BI min 4V w CXR1V IMPRESSION: No acute cardiopulmonary process. No displaced rib fractures identified. Electronically signed by: Yareli Herrera MD 06/01/2025 05:26 PM EST
[2025-06-01 14:50] LABS: MANUAL DIFF FLAG NO
[2025-06-01 14:52] LABS: Hematocrit 45.5 % (42.0-52.0); Hemoglobin 16.1 g/dl (14.0-18.0); Imm Gran Abs Auto 0.01 X10*3/uL (0.00-0.03); Imm Gran Pct Auto 0.3 % (0.0-0.4); Lymphocytes Absolute Auto 2.2 X10*3/uL (1.2-4.9); Mean Corpuscular HGB Conc 35.4 g/dl (31.0-36.0); Mean Corpuscular Hemoglobin 29.3 pg (27.0-33.0); Mean Corpuscular Volume 82.7 fL (80.0-98.0); NRBC Abs Auto 0.000 X10*3/uL (0.0-0.012); NRBC Pct Auto 0.0 /100WBC (0.0-0.2); Platelet Count 100 X10*3/uL (160-400); Red Blood Count 5.50 X10*6/uL (4.60-5.80); White Blood Count 3.9 X10*3/uL (4.8-10.8)
[2025-06-01] MEDS: Lactated Ringers 1,000 ML 999 ML IV ×2 (15:03→16:34)
[2025-06-01] MEDS: PHENobarbitaL sodium 130 MG/ML IM ONCE 270 MG IM (15:04)
[2025-06-01 15:07] LABS: Alanine Aminotransferase 81 U/L (0-40); Albumin Level 4.8 g/dL (3.5-5.0); Alkaline Phosphatase 131 U/L (39-117); Anion Gap 17 (12-20); Aspartate Amino Transferase 77 U/L (5-37); Blood Urea Nitrogen 18 mg/dL (9-16); Calcium 9.1 mg/dL (8.4-10.2); Carbon Dioxide 22 mmol/L (22-29); Chloride 110 mmol/L (96-108); Creatinine Clr Calc Pharmacy 119.1; Estimated Glomerular Filt Rate > 60; Lipase 140 U/L (8-78); Magnesium 1.7 mg/dL (1.6-2.6); Potassium 3.4 mmol/L (3.3-5.1); Sodium 146 mmol/L (135-145); Total Protein 7.2 g/dL (6.5-8.0)
--- NOTE | 2025-06-01 15:12 | ED_ITS ---
HPI - Alcohol General Chief Complaint: ETOH/Substance Use Stated Complaint: etoh,unwell for weeks,dizzy,hallucinating Time Seen by Provider: 06/01/25 14:27 Source: patient, EMS and old records reviewed Mode of arrival: EMS Limitations: no limitations History of Present Illness ED Provider: DR. Hidalgo HPI narrative: 55-year-old male with no significant PMH except for severe alcohol dependence presented today for a concern of alcohol withdrawal patient stated that he has been drinking hard liquor since after Thanksgiving for almost a month now, patient admit to binge drinking hard liquor. Last drink was this morning, patient feel anxious, tremors, and tongue fasciculation feel nauseous, + visual hallucination ants crawling on his legs, no SI, no HI. Related Data Previous Rx's ?Medication ?Instructions ?Recorded acamprosate 333 mg tablet,delayed 666 mg (2 x 333 mg) PO TID 30 days 03/02/25 release #180 tabs folic acid 1 mg tablet 1 mg PO DAILY #30 tabs 03/02 multivitamin 1 tab PO DAILY #30 tabs 02/08 10/01 thiamine mononitrate (vit B1) 100 100 mg PO DAILY #30 tabs 03/02/25 mg tablet Allergies Allergy/AdvReac Type Severity Reaction Status Date / Time No Known Allergies Allergy Verified 06/01/25 14:28 Review of Systems 2 Review of Systems: all other systems are reviewed and are negative Constitutional: Reports as per HPI and Reports no additional constitutional complaints Eyes: Reports as per HPI and Reports no additional eye complaints Reports system reviewed and no additional complaints, except as documented Cardiovascular: Reports as per HPI and Reports no additional cardiovascular complaints Respiratory: Reports as per HPI and Reports no additional respiratory complaints Gastrointestinal: Reports as per HPI and Reports no additional gastrointestinal complaints Genitourinary: Reports no additional female genitourinary complaints Musculoskeletal: Reports no additional musculoskeletal complaints Skin/Breast: Reports system reviewed and no additional complaints, except as docu Psychiatric: Reports no additional psychiatric complaints Endocrine: Reports no additional endocrine complaints Hematologic/Lymphatic: Reports no additional hematologic/lymphatic complaints Allergic/Immunologic: Reports no additional allergic/immunologic complaints Reports system reviewed and no additional complaints, except as documented and Reports Abnormal speech present [facility] Past Medical History Medical History Alcohol use disorder, severe, dependence Social History Social History Household Members: None Housing: House Alcohol intake: current Alcohol intake frequency: 3 or more drinks per day Alcohol type: hard liquor Patient Tobacco Use Status: Never used Tobacco Advance Directives: No Advance Directives Information Provided: No service: No Physical Exam ED Vital Signs: Vital Signs - 24 hr 06/01/25 14:26 06/01/25 14:41 Temperature 97.7 F Pulse Rate 104 H 97 Respiratory Rate 23 H 21 H Blood Pressure 130/81 Pulse Oximetry 97 98 Oxygen Delivery Method Room Air Room Air BMI result Body Mass Index 29.0 Vital signs have been reviewed and appear to be correct. Blood pressure elevated. Heart rate normal. Respiratory rate normal. Temperature normal. Oxygen saturation normal. Appearance: Alert. Oriented X3. No acute distress. Head: Normal external exam. Normocephalic. Atraumatic. No Ulloa signs noted. No raccoon eyes noted Eyes: PERRLA. EOMI. Conjunctiva and sclera normal. Eyelids normal. ENT: TM's Normal. Pharynx normal. Uvula midline. Moist mucous membranes. No trismus noted. No drooling noted. No muffled voice noted. Neck: Normal inspection. Neck supple. FROM. No adenopathy. Thyroid Normal. No meningeal signs. No neck mass noted. CVS: Normal heart rate and rhythm. Heart sound normal. No murmurs noted. Pulses normal throughout. Respiratory: No respiratory distress. Painless inspiration. Breath sounds normal. No wheezes/rales/rhonchi noted. Chest nontender. No accessory muscle usage noted or decreased air movement noted. Abdomen: Soft and nontender. Bowel sounds normal in all 4 quadrants. No distention noted. No organomegaly noted. No visible injury noted. Back: No CVA tenderness. Full range of motion noted. Skin: Skin warm and dry. Normal skin color. Normal skin turgor. No rashes/lesions/lacerations noted. Extremities: No lower extremity edema. Extremities exhibit normal range of motion. Extremities nontender. Neuro: Oriented X 3. Cranial nerve exam: II-XII are grossly intact No motor deficit. No sensory deficit. Reflexes normal. Course Reevaluation(s) Reevaluation #1: 55-year-old male with severe alcohol dependence has been drinking severely for the past 4 weeks presented today concern of withdrawal symptoms patient has suffered from bad severe withdrawal symptoms. Patient with CIWA score of 17 started on phenobarb will admit for monitoring. Time: 15:19 Medical Decision Making Differential Diagnosis Differential Diagnoses: The differential diagnosis associated with the presentation includes ( Alcohol intoxication, severe alcohol withdrawal, electrolyte derangement, severe anemia, anxiety.) Admission/Observation Consideration of admission/observation: Escalation of care including admission/observation considered Consult Healthcare Provider Management of the patient was discussed with: Hospitalist (Dr. Ann) Lab Data MDM Lab Attestation statement: I reviewed the patient's lab results. 06/01/25 14:47 06/01/25 14:47 Labs: Lab Results 06/01/25 Range/Units 14:47 WBC 3.9 L (4.8-10.8) X10*3/uL RBC 5.50 (4.60-5.80) X10*6/uL Hgb 16.1 (14.0-18.0) g/dl Hct 45.5 (42.0-52.0) % MCV 82.7 (80.0-98.0) fL MCH 29.3 (27.0-33.0) pg MCHC 35.4 (31.0-36.0) g/dl RDW 15.7 (11.0-16.0) % Plt Count 100 L (160-400) X10*3/uL MPV 9.8 (9.4-12.4) fL Immature Gran % (Auto) 0.3 (0.0-0.4) % Neut % (Auto) 30.7 L (45-73) % Lymph % (Auto) 56.1 H (20-40) % Upson % (Auto) 10.6 (2-11) % Eos % (Auto) 1.0 (0-4) % Baso % (Auto) 1.3 (0-2) % Lymph # (Auto) 2.2 (1.2-4.9) X10*3/uL Upson # (Auto) 0.4 (0.1-1.2) X10*3/uL Eos # (Auto) 0.0 (0.0-0.4) X10*3/uL Baso # (Auto) 0.1 (0.0-0.2) X10*3/uL Abs Immat Gran (auto) 0.01 (0.00-0.03) X10*3/uL Absolute Neuts (auto) 1.2 L (2.0-8.3) x10*3/uL Absolute Nucleated RBC 0.000 (0.0-0.012) X10*3/uL Nucleated RBC % (auto) 0.0 (0.0-0.2) /100WBC Sodium 146 H (135-145) mmol/L Potassium 3.4 (3.3-5.1) mmol/L Chloride 110 H (96-108) mmol/L Carbon Dioxide 22 (22-29) mmol/L Anion Gap 17 (12-20) BUN 18 H (9-16) mg/dL Creatinine 0.93 (0.5-1.4) mg/dL Estim Creat Clear Calc 119.1 Estimated GFR > 60 Random Glucose 120 H (60-115) mg/dL Calcium 9.1 (8.4-10.2) mg/dL Magnesium 1.7 (1.6-2.6) mg/dL Total Bilirubin 0.5 (0.0-1.0) mg/dL Direct Bilirubin 0.2 (0.0-0.5) mg/dL AST 77 H (5-37) U/L ALT 81 H (0-40) U/L Alkaline Phosphatase 131 H (39-117) U/L Troponin I High Sens < 2.7 (<3.5-35.0) ng/L Total Protein 7.2 (6.5-8.0) g/dL Albumin 4.8 (3.5-5.0) g/dL Lipase 140 H (8-78) U/L Medications Administered Generic Name Dose Route Start Last Admin Trade Name Freq PRN Reason Stop Dose Admin Lactated Ringer's 1,000 mls @ 999 mls/hr 06/01/25 14:45 06/01/25 15:03 Lr IV 06/01/25 15:45 999 mls/hr .Q1H1M ELSA Administration Discontinued Medications Generic Name Dose Route Start Last Admin Trade Name Freq PRN Reason Stop Dose Admin Phenobarbital Sodium 270 mg 06/01/25 14:45 06/01/25 15:04 Phenobarbital Sodium 130 Mg/Ml Im Once IM 06/01/25 14:46 270 mg ONCE ONE Administration Discharge Plan Discharge Clinical Impression: Alcohol withdrawal syndrome Patient Disposition: Admitted As Inpatient Print Language: Lebanese
[2025-06-01 15:15] LABS: Troponin-I High Sensitivity < 2.7 ng/L (<3.5-35.0)
--- NOTE | 2025-06-01 15:23 | P.HPHOSP_ITS ---
History of Present Illness Date of Service: 06/01/25 Attending physician on admission: Charlee Greenwood Chief Complaint: alcohol withdrawals 54y/o M with no significant past medical history who reports daily consumption of approximately a handle of vodka since Thanksgiving bingeing(per ed last drink this morning). He is also saying he is not having much appetite, also feeling dehydrated and urine output also decreasing. Has some abdominal pain left flank area, denies nausea, but also says have some ribcage pain and cough dry, says passing gases ,some small amount of bm's. In addition-he says that he feels like having hallucination like insect crawling on him. Labs EKG reviewed: WBC 3.9, platelets 100, sodium: 146 BUN :18, cr 0.93 lft;s elevated but improving from previous. ekg:nsr lipase : 140. Review of Systems 2 Review of Systems: As above. Yes all other systems are reviewed and are negative [facility] Medical History Alcohol use disorder, severe, dependence Social History Household Members: None Housing: House Do you presently have visiting nurse or other home services: No Alcohol intake: current Alcohol intake frequency: 3 or more drinks per day Alcohol type: hard liquor Patient Tobacco Use Status: Never used Tobacco service: No Meds Allergies Allergy/AdvReac Type Severity Reaction Status Date / Time No Known Allergies Allergy Verified 06/01/25 14:28 Active Medications: Current Medications Lactated Ringer's (Lr) 1,000 mls @ 999 mls/hr IV .Q1H1M ELSA Stop: 06/01/25 15:45 Last Admin: 06/01/25 15:03 Dose: 999 mls/hr Pharmacy Consult (Consult Rx Etoh Phenob Im/Po) 1 each MISCELLANE ONCE PRN; Protocol PRN Reason: Consult order Phenobarbital (Phenobarbital 30 Mg Tablet) 60 mg PO BID ELSA Stop: 06/03/25 21:01 Phenobarbital (Phenobarbital 30 Mg Tablet) 30 mg PO BID ELSA Stop: 06/05/25 21:01 Phenobarbital (Phenobarbital 15 Mg Tablet) 15 mg PO DAILY ELSA Stop: 06/07/25 09:01 Phenobarbital Sodium (Phenobarbital Sodium 130 Mg/Ml Vial Im Q3hx2) 202 mg IM Q3H ELSA Stop: 06/01/25 21:01 Home Medications ?Medication ?Instructions ?Recorded ?Confirmed ?Last Taken ?Type ibuprofen 200 mg tablet 800 mg PO Q6H PRN Pain 06/0106/01/25 Unknown History Physical Exam 2 Vital Signs and Narrative: Vital Signs: Last Vital Signs Temp 97.7 F 06/01/25 14:26 Pulse 97 06/01/25 14:41 Resp 21 H 06/01/25 14:41 BP 130/81 06/01/25 14:41 Pulse Ox 98 06/01/25 14:41 O2 Del Method Room Air 06/01/25 14:41 BMI result Body Mass Index 29.0 Appearance: Alert.? Oriented X3. Tremors/anxious/hallucinations cvs: rrr, [id number]. res: clear to auscultation ,no rhonchii or wheezing abd: no rebound or guarding ,nt, bs present. ext pulses present , no cyanosis . neuro: axo3 , nonfocal. Results Labs 06/01/25 14:47 06/01/25 14:47 Labs: Laboratory Results - last 24 hr 06/01/25 14:47 MCV 82.7 MCH 29.3 MCHC 35.4 RDW 15.7 Plt Count 100 L MPV 9.8 Immature Gran % (Auto) 0.3 Neut % (Auto) 30.7 L Lymph % (Auto) 56.1 H [place] % (Auto) 10.6 Eos % (Auto) 1.0 Baso % (Auto) 1.3 Lymph # (Auto) 2.2 [place] # (Auto) 0.4 Eos # (Auto) 0.0 Baso # (Auto) 0.1 Abs Immat Gran (auto) 0.01 Absolute Neuts (auto) 1.2 L Absolute Nucleated RBC 0.000 Nucleated RBC % (auto) 0.0 Anion Gap 17 Estim Creat Clear Calc 119.1 Estimated GFR > 60 Random Glucose 120 H Calcium 9.1 Magnesium 1.7 Total Bilirubin 0.5 Direct Bilirubin 0.2 AST 77 H ALT 81 H Alkaline Phosphatase 131 H Troponin I High Sens < 2.7 Total Protein 7.2 Albumin 4.8 Lipase 140 H Assessment and Plan (1) Alcohol withdrawal syndrome: Qualifiers: Complication of substance-induced condition: with perceptual disturbance Qualified Code(s): F10.932 - Alcohol use, unspecified with withdrawal with perceptual disturbance Status: Acute Plan 55 y/o M with severe alcohol use disorder presenting with alcohol withdrawal symptoms , acute pancreatitis (elevated lipase), transaminitis, and prerenal azotemia (likely pre-renal from volume depletion). No evidence of biliary obstruction on imaging. Alcohol withdrawal Continue phenobarbital protocol , added Haldol 2.5 mgX1 dose CIWA monitoring, Monitor for progression to severe withdrawal (seizures, delirium tremens). Nutritional support: Thiamine, folate, multivitamins. Acute pancreatitis possible secondary to alcohol use. KUB, clear liquid IV fluids, pain control, and antiemetics. Monitor for complications. Also has cough and ribcage pain we will do chest x-ray. Elevated LFTs: likely from chronic alcohol use Monitor LFTs and clinical status. 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 Prerenal azotemia likely due to decreased p.o. intake IV fluid resuscitation. Monitor renal function and urine output. Decreased urine output: Patient was encouraged for hydration, monitor PVRs Hyponatremia: Secondary to above. Added IV fluid, monitor BMP closely. Thrombocytopenia: Chronic Monitor CBC DVT prophylaxis: SubQ Lovenox Above management discussed with the patient in detail length he understand and in agreement with the above plan, time spent 70 minute, patient full code. Patient will benefit from 2 midnight stay considering severe alcohol withdrawals, pancreatitis, prerenal azotemia-need IV fluid, phenobarb protocol, CIWA monitoring,moniter renal function/electrolytes . Quality Stroke Does the patient have a stroke diagnosis?: No VTE Prior VTE?: No VTE Risk Level:: Medical - moderate - high VTE Device Contraindication: N/A - Device Ordered VTE Drug Contraindication: N/A - Med Ordered
--- OUTSIDE RECORDS SUMMARY | 2025-06-01 15:26 | XMS_ITS | Patient Health Record ---
Author Organization [facility] Address [address] [place] [id number] Care Team Providers Care Office Admin Name Role Phone Darron ALFORD, Nahum Primary Care Provider Lenora Maxwell Unavailable [phone] Allergies No Known Allergies Reason For Referral [...] Status Risk Notes Problem Acquired hallux valgus (38894093) Hallux valgus (acquired), right foot (M20.11) Active confirmed Plan Of Treatment No Information Insurance Providers Payer Name Payer Address Payer Phone Subscriber Number Group Number Insured Name Patient Relationship to Insured Coverage Start Date Coverage End Date [facility] [address] [address] [place] [address] [phone] [id number] Tai Maurice Self - patient is the insured Medical (General) History Medical History History ICD Code Arthritis Back,Hip,and Knee pain Broken bones Chicken pox Bone implants/screws Surgical History Surgery Date(Month/Year) broken arm(s) 1994 knee surgery, left 2006
--- OUTSIDE RECORDS SUMMARY | 2025-06-01 15:26 | XMS_ITS | Clinical Summary ---
Author Organization [facility] Address [address] [facility] [address] [place] [id number] Phone Care Team Providers Care Metal Box Maker Name Role Phone JanelNahum pennington Primary Care Provider [phone] Allergies No known active allergies Medications buPROPion [...] oral naltrexone Have put in application to [facility], will likely go there after d/c to [...] 2021 INFLUENZA VACCINE (#1) 2025 COVID-19 VACCINE (2 - 2024-2 6 season) 2025 10/11/2020 SCREENING FOR DIABETES 09/23/2027 09/22/2024 RSV VACCINE (1 - 1-dose 75+ series) 2046 HEPATITIS A VACCINES Aged Out No long [...] on file Insurance PPO EPO [place] [address] [place] [address] PPO EPO [facility] PPO EPO [facility] [place] [address] [place] [address] PPO EPO PPO EPO PPO EPO [facility] PPO EPO Advance Directives For more information, please contact: [phone] (9AM - 5PM [facility], Friday-Friday) * Full Code (Latest Code Status on File) Date Activated Date Inactivated Comments 09/21/2024 8:13 AM Question Answer Comments Code Status Confirmed With: Other (specify below ) Care Teams Metal Box Maker Relationship Specialty Start Date End Date Nahmu Rob DO [address] [place] [id number] PCP - General Internal Medicine 09/22/24 Additional Source Comments The information contained in this document represents components of the legal health record. It is not the complete legal health record.[facility]
--- OUTSIDE RECORDS SUMMARY | 2025-06-01 15:26 | XMS_ITS | Clinical Summary ---
Author Organization [address] [facility] Address [address] [place] [phone] Phone Care Team Providers Care Burial Agent Name Role Phone Nahum Rob DO Primary Care Provider [phone] Allergies No known active allergies Medications No known medications Encounters Date Type Department Care Team Description 03/14/2025 Telephone Gastroenterology [facility] [address] [address] Pamella Johnson MD from Last 3 Months Social History Tobacco Use Types Packs/Day Years [...] on file Sexual Orientation Not on file Last Filed Vital Signs Vital Sign Reading [...] Health Maintenance Due Date Last Done Comments Colorectal Cancer Screening: Colonoscopy 1971 DTaP,Tdap,and Td Vaccines (1 - Tdap) 1990 Hepatitis A Vaccines (1 of 2 - Risk 2-dose series) 1990 Hepatitis B Vaccines (1 of 3 - 19+ 3-dose series) 1990 Pneumococcal Vaccine: 50+ Years (1 of 1 - PCV) 2021 Zoster Vaccines (1 of 2) 2021 HIV Screening 06/03/2022 Hepatitis C Screening 06/03/2022 Social Influencers of Health Screening 06/03/2022 Depression Screening 06/09/2024 COVID-19 Vaccine (4 - 2024-2 6 season) 2025 06/20/2021, 11/01/2020, 10/11/2020 Influenza Vaccine (#1) 2025 , 06/20/2021 Cholesterol Screening (Lipid Panel) 05/11/2029 05/11/2024 RSV Immunization Adult Patients (1 - 1-dose 75+ series) 2046 HIB Vaccines Aged Out No longer eligi [...] Procedure Name Priority Date/Time Associated Diagnosis Comments ALPHA FETOPROTEIN TUMOR MARKER Routine 03/11/2025 1:42 PM EDT ETOH abuse Hospital discharge follow-up HEPATIC FUNCTION PANEL Routine 03/11/2025 1:42 PM EDT ETOH abuse Hospital discharge follow-up LIPID PANEL WITH REFLEX TO DIRECT LDL Routine 05/11/2024 9:48 AM EST Laboratory tests ordered as part of a complete physical exam (CPE) ETOH abuse IGT (impaired glucose tolerance) Anxiety HLD (hyperlipidemia) from Last 3 Months or Most Recently Relevant to Health Maintenance Results * Alpha fetoprotein tumor marker (03/11/2025 1:42 PM EDT) [facility] AFP <2.5 0.0 - 8.0 ng/mL LAB CHEMISTRY METHOD 03/11/2025 5:45 PM EDT [facility] Blood Venous blood specimen / Unknown Venipuncture / Unknown 03/11/2025 1:42 PM EDT 03/11/2025 1:42 PM EDT Narrative [facility] - 03/11/2025 5:45 PM EDT The Siemens Advia Rocket Lawyeraur Chemiluminescent Immunoassay is used. Results obtained with different assay methods or kits cannot be used interchangeably. Results cannot be interpreted as absolute evidence of the presence or absence of malignant disease. Delfino Teran LAB BLOOD ORDERABLES Final Resul t [facility] [address] [place] [address], * (ABNORMAL) Hepatic function panel (03/11/2025 1:42 PM EDT) [facility] Total Protein 6.4 6.0 - 8.0 g/dL LAB CHEMISTRY METHOD 03/11/2025 5:29 PM EDT [facility] Albumin 3.6 3.2 - 5.0 g/dL LAB CHEMISTRY METHOD 03/11/2025 5:29 PM EDT [facility] Total Bilirubin 0.3 0.0 - 1.4 mg/dL LAB CHEMISTRY METHOD 03/11/2025 5:29 PM EDT [facility] Bilirubin, Direct 0.2 0.0 - 0.3 mg/dL LAB CHEMISTRY METHOD 03/11/2025 5:29 PM EDT [facility] Bilirubin, Indirect 0.1 0.0 - 1.1 mg/dL LAB CHEMISTRY METHOD 03/11/2025 5:29 PM EDT [facility] ALT (SGPT) 102(H) 10 - 60 unit/L LAB CHEMISTRY METHOD 03/11/2025 5:29 PM EDT [facility] AST (SGOT) 38 10 - 42 unit/L LAB CHEMISTRY METHOD 03/11/2025 5:29 PM EDT [facility] Alkaline Phosphatase 88 42 - 121 unit/L LAB CHEMISTRY METHOD 03/11/2025 5:29 PM EDT [facility] Blood Venous blood specimen / Unknown Venipuncture / Unknown 03/11/2025 1:42 PM EDT 03/11/2025 1:42 PM EDT us Delfino Teran LAB BLOOD ORDERABLES Final Resul t [facility] [address] [place] [address], * (ABNORMAL) Lipid panel with reflex to direct LDL (05/11/2024 9:48 AM EST) Cholesterol 189 0 - 200 mg/dL LAB CHEMISTRY METHOD 05/11/2024 11:57 AM [facility] Triglycerides 76 0 - 150 mg/dL LAB CHEMISTRY METHOD 05/11/2024 11:57 AM EST [facility] HDL 57 >=40 mg/dL LAB CHEMISTRY METHOD 05/11/2024 11:57 AM [facility] LDL Calculated 117(H) 0 - 100 mg/dL LAB CHEMISTRY METHOD 05/11/2024 11:57 AM [facility] VLDL Cholesterol Parmjit 15.2 mg/dL LAB CHEMISTRY METHOD 05/11/2024 11:57 AM [facility] Non HDL Chol. (LDL+VLDL) 132 <145 mg/dL LAB CHEMISTRY METHOD 05/11/2024 11:57 AM [facility] Chol/HDL Ratio 3.3 0.0 - 4.4 LAB CHEMISTRY METHOD 05/11/2024 11:57 AM EST [facility] Blood Venous blood specimen / Unknown Venipuncture / Unknown 05/11/2024 9:48 AM EST 05/11/2024 9:48 AM EST us Delfino Teran LAB BLOOD ORDERABLES Final Resul t [facility] [address] [place] [address], from Last 3 Months or Most Recently Relevant to Health Maintenance Insurance [facility] Care Teams Burial Agent Relationship Specialty Start Date End Date Nahum Rob DO [address] [place] [phone] PCP - General 11/28/21
--- OUTSIDE RECORDS SUMMARY | 2025-06-01 15:26 | XMS_ITS | Encounter Summary ---
Author Organization [facility] Address [address] [place] [phone] Phone Care Team Providers Care Bench Lathe Operator Name Role Phone Pcp, Unknown Primary Care Provider Nahum Dorantes DO Primary Care Provider [phone] Encounter Details Date Type Department Care Team (Late st Contact Info) Description 09/20/2024 Procedure [facility], Ct Scan - [address] [address] Social History Tobacco Use Types Packs/Day Years [...] AM EST documented as of this encounter Plan of Treatment Not on file documented as of this encounter Visit Diagnoses Not on filedocumented in this encounter Care Teams Bench Lathe Operator Relationship Specialty Start Date End Date Pcp, Unknown PCP - General 09/20/24 09/21/24 Nahum Rob DO [address] [place] [address] [address] [place] [address] PCP - General Internal Medicine 09/22/24 documented as of this encounter Additional Source Comments The information contained in this document represents components of the legal health record. It is not the complete legal health record.[facility]
[2025-06-01 16:01] LABS: Resp Syncy Virus RNA Qual PCR NEGATIVE (Negative); SARS COV2 PCR INHOUSE NEGATIVE (Negative)
--- NOTE | 2025-06-01 17:23 | PHA.MEDREC ---
Pharmacy Consult ? Medication Reconciliation Pharmacy has completed the medication reconciliation. Spoke to patient who knew medications. Not taking sertraline anymore as he said it didnt work
--- NOTE | 2025-06-01 18:01 | HO.NURTONUR ---
55 y/o M, A/ox3- confused at times, Full Code Came from home for ETOH withdrawal. Pt states he drinks alot of vodka daily- unsure of amount. Hx of etoh withdrawal- denies seizures. Last drink prior to arrival to ED. Pt states paresthesia in bilateral hands and hallucinations of bugs. Labs: WBC 3.9, LFTs elevated, Lipase 140 Reports: EKG- normal sinus, Rib/CXR- negative, KUB xray- small amount of stool 20g IV Left hand- he got 2L LR, phenobarb protocol. CIWAs q2hr- ciwa upon arrival 15 --> decreased to 7 Normal sinus rhythm on monitor tech Clear liquid diet
[2025-06-01] MEDS: PHENobarbitaL sodium 130 MG/ML VIAL IM Q3Hx2 202 MG IM ×2 (18:46→21:39)
[2025-06-01] MEDS: 0.9 % Sodium Chloride Flush 3 ML SYRINGE IVFLUSH (21:27)
--- NOTE | 2025-06-02 | ECG_ITS ---
Test Reason : chest tightness Blood Pressure : */* mmHG Vent. Rate : 75 BPM Atrial Rate : 75 BPM P-R Int : 134 ms QRS Dur : 92 ms QT Int : 442 ms P-R-T Axes : 53 -29 -25 degrees QTcB Int : 493 ms Normal sinus rhythm Nonspecific T wave abnormality Prolonged QT Abnormal ECG When compared with ECG of 01-Jun-2025 14:32, T wave inversion now evident in Anterior leads Referred By: Charlee Greenwood Electronically Signed By: CATY MEYER MD
[2025-06-02 03:08] VITALS: BP 135/80; PULSE 81; RESP 15; TEMP 36.5; O2SAT 94
[2025-06-02] MEDS: diazePAM 10 MG/2 ML CARTRIDGE 5 MG IVPUSH (03:29)
[2025-06-02 05:28] VITALS: BP 128/72; PULSE 81; RESP 20; TEMP 37.2; O2SAT 97
--- NOTE | 2025-06-02 05:42 | PC.NURSE ---
Patient reported feeling worse this morning despite 5mg IVP valium given per MD for earlier CIWA scoring. CIWA reassessed, now 20 this 05:00 hour. VSS. Mentation maintained per initial assessment. Covering Dr. Riki Martinez notified, with orders for gabapentin, clonidine, and additional dose of 130mg IM phenobarbital. Medications administered, effectiveness pending. Suction set up in room and aspiration and seizure precautions in place. Pt placed on continuous spo2 monitoring by medical underwriter due to requiring these additional sedating meds. Spo2 remains mid to upper 90's overnight. Pt denies sob. Breathing remains even and unlabored without distress. Bed alarm on, safety measures in place. Plan of care enacted.
[2025-06-02 06:08] LABS: Appearance Urine Clear; Glucose Urine UA Negative (Negative); PH 6.0 (5.0-9.0); Specific Gravity - Urine >= 1.030 (1.005-1.025); UMIC TRIGGER UACC YES
[2025-06-02 07:44] VITALS: BP 127/76; PULSE 92; RESP 20; TEMP 36.4; O2SAT 97
--- NOTE | 2025-06-02 08:49 | MHC.CM.PN ---
Home self care vs Recovery Team intervention r/t ETOH is the tentative plan; CM has initiated and will follow for dc planning. PCP is Dr. Nahum Rob and Patient may need assist with transport at dc. 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
[2025-06-02] MEDS: Thiamine HCL 100 MG in 0.9 % Sodium Chloride 100 ML 202 MG IV (08:54)
[2025-06-02] MEDS: 0.9 % Sodium Chloride Flush 3 ML SYRINGE IVFLUSH ×2 (08:55→20:40)
[2025-06-02 09:47] LABS: Anion Gap 15 (12-20); Blood Urea Nitrogen 13 mg/dL (9-16); Calcium 8.8 mg/dL (8.4-10.2); Carbon Dioxide 24 mmol/L (22-29); Chloride 106 mmol/L (96-108); Creatinine Clr Calc Pharmacy 176.0; Estimated Glomerular Filt Rate > 60; Potassium 3.4 mmol/L (3.3-5.1); Sodium 142 mmol/L (135-145)
[2025-06-02 09:58] LABS: Hematocrit 40.2 % (42.0-52.0); Hemoglobin 13.6 g/dl (14.0-18.0); Mean Corpuscular HGB Conc 33.8 g/dl (31.0-36.0); Mean Corpuscular Hemoglobin 28.3 pg (27.0-33.0); Mean Corpuscular Volume 83.8 fL (80.0-98.0); NRBC Abs Auto 0.000 X10*3/uL (0.0-0.012); NRBC Pct Auto 0.0 /100WBC (0.0-0.2); Red Blood Count 4.80 X10*6/uL (4.60-5.80); White Blood Count 3.0 X10*3/uL (4.8-10.8)
[2025-06-02 10:03] LABS: Platelet Count 73 X10*3/uL (160-400)
[2025-06-02 11:16] VITALS: BP 145/80; PULSE 87; RESP 20; TEMP 36.7; O2SAT 97
--- NOTE | 2025-06-02 12:19 | MHC.RECOVRN ---
Pt is a 55-y/o Marshallese-speaking male with a history of alcohol use disorder (AUD) who initially presented to the ED for evaluation of alcohol withdrawal. Lab values obtained and not WNL , found to have acute pancreatitis and pt admitted for further management. Met with pt in 487-1 after receiving an addiction consult for evaluation of AUD and recovery support. Upon approach pt is calm, oriented, and receptive to conversation.? Discussed alcohol use and tx history in detail. See recovery assessment for full eval. Pt reports daily alcohol use- 1 handle of Vodka or [place] since gi.?Multiple attempts to abstain in the past - longest period of abstinence was 32 months. Has hx of numerous ATS/CSS/Residential stays including at [place] [id number], sober living at [facility], and [id number] addiction treatment in [place] and [place]. Denies hx of withdrawal seizures. Endorses hx of visual hallucinations, tremors, and sweatiness r/t alcohol withdrawal. Currently endorses some visual disturbances ceiling is moving , clock is turning and mild tremors. Pt states he feels overmedicated at the same time and is unsure whether the disturbances are due to withdrawals or the medication administered. Pt on phenobarbital protocol. Despite this pt is eager to continue with discussion. Primary RN made aware of pt?s concerns.? Discussed precipitants of his last recurrence, RENITA, and recovery options/supports.? Pt is interested in re-starting RENITA and discussing this further with the addiction medicine provider.?Pt has been to the [facility] before for RENITA. Educational materials offered as well as info on local AA meetings which pt has found helpful in the past.? Pt allowed to rest and will f/u at a later time to further discuss treatment recommendations.
[2025-06-02 15:10] VITALS: BP 141/79; PULSE 73; RESP 20; TEMP 36.4; O2SAT 96
--- NOTE | 2025-06-02 15:31 | HO.PM.IMPN ---
Subjective Subjective Date of Service: 06/02/25 Interval History: alcohol withdrawals Review of Systems Patient is still very anxious and tremulous c/o some chest tightness -reproducable . Says has sore throat, runny nose,pain with cough-viral symptoms?? Physical Exam Exam: Exam: Appearance: Alert.? Oriented X3. Tremors/anxious/hallucinations cvs: rrr, [id number]. res: clear to auscultation ,no rhonchii or wheezing abd: no rebound or guarding ,nt, bs present. ext pulses present , no cyanosis . neuro: axo3 , nonfocal. Vital Signs: Vital Signs: Last Vital Signs Temp 97.5 F 06/02/25 15:10 Pulse 73 06/02/25 15:10 Resp 20 06/02/25 15:10 BP 141/79 H 06/02/25 15:10 Pulse Ox 96 06/02/25 15:10 O2 Del Method Room Air 06/02/25 15:10 BMI result Body Mass Index 29.0 Objective Data Active Medications Acetaminophen (Acetaminophen 325 Mg Tablet) 650 mg PO Q6H PRN PRN Reason: Pain, Mild 1-3,fever,headache Last Admin: 06/02/25 08:55 Dose: 650 mg Documented By: LYNN Calcium Carbonate (Calcium Carbonate 750 Mg Tab.Chew) 750 mg PO Q4H PRN PRN Reason: Heartburn Last Admin: 06/02/25 14:48 Dose: 750 mg Documented By: LYNN Clonidine HCl (Clonidine Hcl 0.1 Mg Tablet) 0.1 mg PO BID [facility]; Protocol Last Admin: 06/02/25 05:28 Dose: 0.1 mg Documented By: KOBE Diazepam (Diazepam 10 Mg/2 Ml Cartridge) 5 mg IVPUSH Q4H PRN PRN Reason: Alcohol Withdrawal Last Admin: 06/02/25 03:29 Dose: 5 mg Documented By: KOBE Enoxaparin Sodium (Enoxaparin Sodium 40 Mg/0.4 Ml Syringe) 40 mg SUBCUT Q24H ELSA Gabapentin (Gabapentin 600 Mg Tablet) 600 mg PO BID [facility] Last Admin: 06/02/25 05:28 Dose: 600 mg Documented By: KOBE Thiamine HCl 100 mg/ Sodium (Chloride) 101 mls @ 202 mls/hr IV DAILY [facility] Last Infusion: 06/02/25 09:39 Dose: Infused Documented By: LYNN Folic Acid 1 mg/ Sodium (Chloride) 50.2 mls @ 100.4 mls/hr IV DAILY [facility] Last Infusion: 06/02/25 11:19 Dose: Infused Documented By: LYNN Magnesium Hydroxide (Milk Of Magnesia 30 Ml Oral.Susp) 30 ml PO DAILY PRN PRN Reason: Constipation Melatonin (Melatonin 3 Mg Tablet) 6 mg PO BEDTIME PRN PRN Reason: Insomnia Pantoprazole Sodium (Pantoprazole Sodium 40 Mg/10 Ml Vial) 40 mg IVPUSH DAILY [facility] Last Admin: 06/02/25 08:54 Dose: 40 mg Documented By: LYNN Pharmacy Consult (Consult Rx Etoh Phenob Im/Po) 1 each MISCELLANE ONCE PRN; Protocol PRN Reason: Consult order Phenobarbital (Phenobarbital 30 Mg Tablet) 60 mg PO BID [facility] Stop: 06/03/25 21:01 Last Admin: 06/02/25 08:55 Dose: 60 mg Documented By: LYNN Phenobarbital (Phenobarbital 30 Mg Tablet) 30 mg PO BID [facility] Stop: 06/05/25 21:01 Phenobarbital (Phenobarbital 15 Mg Tablet) 15 mg PO DAILY [facility] Stop: 06/07/25 09:01 Sodium Chloride (0.9 % Sodium Chloride Flush 3 Ml Syringe) 3 ml IVFLUSH QSHIFT [facility] Last Admin: 06/02/25 15:03 Dose: Not Given Documented By: LYNN Non-Admin Reason: Previously Administered Labs 06/02/25 09:22 06/02/25 09:22 Labs: Laboratory Results - last 24 hr 06/01/25 06/02/25 06/02/25 14:47 05:20 09:22 MCV 83.8 MCH 28.3 MCHC 33.8 RDW 15.8 Plt Count 73 L D MPV 10.3 Absolute Nucleated RBC 0.000 Nucleated RBC % (auto) 0.0 Anion Gap 15 Estim Creat Clear Calc 176.0 Estimated GFR > 60 Random Glucose 133 H Calcium 8.8 Urine Color Dark Yellow Urine Appearance Clear Urine pH 6.0 Ur Specific Elmer >= 1.030 H Urine Protein 30 (1+) H Urine Glucose (UA) Negative Urine Ketones Trace Urine Blood Negative Urine Nitrite Negative Ur Leukocyte Esterase Negative Urine RBC 0-2 Urine WBC 0-5 Ur Squamous Epith Cells 0-2 Urine Bacteria None Seen Hyaline Casts 0-2 Phenobarbital 15.2 Influenza Type A (PCR) NEGATIVE Influenza Type B (PCR) NEGATIVE RSV RNA Qual (PCR) NEGATIVE SARS-CoV-2 RNA (RT-PCR) NEGATIVE Assessment and Plan (1) Alcohol withdrawal syndrome: Status: Acute Plan 55 y/o M with severe alcohol use disorder presenting with alcohol withdrawal symptoms , acute pancreatitis (elevated lipase), transaminitis, and prerenal azotemia (likely pre-renal from volume depletion). No evidence of biliary obstruction on imaging. Alcohol withdrawal pheno levels 15.2 Continue phenobarbital protocol ,added extra pheno 65 mg im. CIWA monitoring-14, Monitor for progression to severe withdrawal (seizures, delirium tremens). Nutritional support: Thiamine, folate, multivitamins. uri like symptoms-? viral added cough medication, rpp ekg nsr, nonspecific t wave abnormality added trop. Acute pancreatitis possible secondary to alcohol use. KUB and cxr-seems fine clear liquid IV fluids, pain control, and antiemetics. Monitor for complications. Elevated LFTs: likely from chronic alcohol use Monitor LFTs and clinical status. Heavy Coil Winder on alcohol cessation. Prerenal azotemia likely due to decreased p.o. intake IV fluid resuscitation. Monitor renal function and urine output. Decreased urine output: Patient was encouraged for hydration, monitor PVRs Hypernatremia: Secondary to above. imrpoved ,s/p iv. Thrombocytopenia: Chronic Monitor CBC DVT prophylaxis: SubQ Lovenox ongoing need for stay considering severe alcohol withdrawals, pancreatitis, prerenal azotemia-need IV fluid, phenobarb protocol, CIWA monitoring,moniter renal function/electrolytes Quality Stroke Does the patient have a stroke diagnosis?: No VTE Prior VTE?: No VTE Risk Level:: Medical - moderate - high VTE Device Contraindication: N/A - Device Ordered VTE Drug Contraindication: N/A - Med Ordered
[2025-06-02] MEDS: guaiFEN/Codeine SF 200/20/10ML 10 ML LIQUID PO (16:03)
[2025-06-02] MEDS: Lidocaine 4 % Patch ADH..PATCH 1 PATCH TRANSDERMA (16:03)
[2025-06-02 16:12] LABS: Troponin-I High Sensitivity < 2.7 ng/L (<3.5-35.0)
[2025-06-02 16:33] LABS: Strep A Nucleic Acid Negative (Negative)
[2025-06-02 20:00] VITALS: BP 129/82; PULSE 85; RESP 20; TEMP 36.6; O2SAT 95
[2025-06-03] VITALS (8 sets, daily range): BP systolic 114–146; BP diastolic 69–89; PULSE 69–79; RESP 14–20; TEMP 36.4–37.2; O2SAT 92–99
[2025-06-03 08:36] LABS: Hematocrit 42.5 % (42.0-52.0); Hemoglobin 14.3 g/dl (14.0-18.0); Mean Corpuscular HGB Conc 33.6 g/dl (31.0-36.0); Mean Corpuscular Hemoglobin 28.4 pg (27.0-33.0); Mean Corpuscular Volume 84.5 fL (80.0-98.0); NRBC Abs Auto 0.000 X10*3/uL (0.0-0.012); NRBC Pct Auto 0.0 /100WBC (0.0-0.2); Platelet Count 74 X10*3/uL (160-400); Red Blood Count 5.03 X10*6/uL (4.60-5.80); White Blood Count 3.8 X10*3/uL (4.8-10.8)
[2025-06-03 09:26] LABS: Folate 12.5 ng/mL (> or = 4.0); Vitamin B12 269 pg/mL (200-900)
[2025-06-03] MEDS: Thiamine HCL 100 MG in 0.9 % Sodium Chloride 100 ML IV (09:56)
[2025-06-03 10:00] LABS: Chlamydia pneumoniae PCR Not Detected (Not Detect.); Coronavirus 229E PCR Not Detected (Not Detect.); Coronavirus HKU1 PCR Not Detected (Not Detect.); Coronavirus NL63 PCR Not Detected (Not Detect.); Coronavirus OC43 PCR Not Detected (Not Detect.); RSV PCR Not Detected (Not Detect.); Rhino/Enterovirus PCR Not Detected (Not Detect.)
[2025-06-03 10:33] LABS: SARS-CoV-2 PCR Not Detected (Not Detect.)
[2025-06-03 10:34] LABS: Influenza A H1 PCR Not Detected (Not Detect.); Influenza A H1-2009 PCR Not Detected (Not Detect.); Influenza A H3 PCR Not Detected (Not Detect.)
--- NOTE | 2025-06-03 12:52 | HO.ADDICTCON ---
History of Present Illness Date of Service: 06/03/2025 Chief Complaint: Alcohol Withdrawal Reason for Consult: AUD Sources of Information: patient interviewed and chart reviewed HPI Narrative: Patient is a 55 year old male medically admitted with acute alcohol withdrawal and pancreatitis. Seen by t/w in room 487. He is awake, alert, pleasant and engaged in interview. He reports that he has been drinking vodka daily for over a month and felt it was time to seek help. Admitted 02/2025, similar presentation. He states he followed up with providers following admission and was attending meetings, however after some time, he began to feel overwhelmed and began to isolate and drink again. 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 He states that he also connected with a therapist and was attending AA meetings. He stopped going to both once he started drinking again sating he felt ashamed to show my face again . He identifies increased depressive sx--decreased motivation, low self worth, anhedonia, sadness, and worry. States he was previously prescribed Sertraline, but dose was never increased and he did not note a difference. Withdrawal sx improving. Tremor noted and anxiety reported GI sx imroving--he is requesting diet be advanced. Review of Systems Constitutional: Reports as per HPI and Reports no additional constitutional complaints Diagnostics Vital Signs (24Hr): Vital Signs - 24 hr 06/02/25 15:10 06/02/25 20:00 06/03/25 00:00 Temperature 97.5 F 97.9 F 97.9 F Pulse Rate 73 85 73 Respiratory Rate 20 20 20 Blood Pressure 141/79 H 129/82 129/88 Pulse Oximetry 96 95 97 Oxygen Delivery Method Room Air Room Air Room Air 06/03/25 04:00 06/03/25 07:38 06/03/25 11:09 Temperature 97.5 F 98.1 F 99.0 F Pulse Rate 69 79 69 Respiratory Rate 16 18 18 Blood Pressure 124/84 134/85 126/85 Pulse Oximetry 99 98 98 Oxygen Delivery Method Room Air Room Air Room Air BMI result Body Mass Index 29.0 Labs 06/03/25 08:29 06/02/25 09:22 Labs: Laboratory Results - last 48 hr 06/01/25 06/02/25 06/02/25 14:47 05:20 09:22 WBC 3.9 L 3.0 L RBC 5.50 4.80 Hgb 16.1 13.6 L Hct 45.5 40.2 L MCV 82.7 83.8 MCH 29.3 28.3 MCHC 35.4 33.8 RDW 15.7 15.8 Plt Count 100 L 73 L D MPV 9.8 10.3 Immature Gran % (Auto) 0.3 Neut % (Auto) 30.7 L Lymph % (Auto) 56.1 H [place] % (Auto) 10.6 Eos % (Auto) 1.0 Baso % (Auto) 1.3 Lymph # (Auto) 2.2 [place] # (Auto) 0.4 Eos # (Auto) 0.0 Baso # (Auto) 0.1 Abs Immat Gran (auto) 0.01 Absolute Neuts (auto) 1.2 L Absolute Nucleated RBC 0.000 0.000 Nucleated RBC % (auto) 0.0 0.0 Sodium 146 H 142 Potassium 3.4 3.4 Chloride 110 H 106 Carbon Dioxide 22 24 Anion Gap 17 15 BUN 18 H 13 Creatinine 0.93 0.63 Estim Creat Clear Calc 119.1 176.0 Estimated GFR > 60 > 60 Random Glucose 120 H 133 H Estimat Average Glucose 100 Hemoglobin A1c % 5.1 Calcium 9.1 8.8 Magnesium 1.7 Total Bilirubin 0.5 Direct Bilirubin 0.2 AST 77 H ALT 81 H Alkaline Phosphatase 131 H Troponin I High Sens < 2.7 Total Protein 7.2 Albumin 4.8 Lipase 140 H Vitamin B12 Folate Urine Color Dark Yellow Urine Appearance Clear Urine pH 6.0 Ur Specific Gaffney >= 1.030 H Urine Protein 30 (1+) H Urine Glucose (UA) Negative Urine Ketones Trace Urine Blood Negative Urine Nitrite Negative Ur Leukocyte Esterase Negative Urine RBC 0-2 Urine WBC 0-5 Ur Squamous Epith Cells 0-2 Urine Bacteria None Seen Hyaline Casts 0-2 Phenobarbital 15.2 Respiratory Panel Jacobs Adenovirus (Rapid PCR) B.pert (TEM-PCR) B.parapertussis DNA PCR C. pneumoniae DNA (PCR) Coronavirus OC43 (PCR) Coronavirus HKU1 (PCR) Coronavirus 229E (PCR) Coronavirus NL63 (PCR) Human Metapneumovir PCR Influenza A (RT-PCR) Influenza A (H1) PCR Influ A (H1/09) PCR Influenza A (H3) PCR Influenza Type A (PCR) NEGATIVE Influenza B (RT-PCR) Influenza Type B (PCR) NEGATIVE M. pneumoniae (PCR) Parainfluenza 1 (PCR) Parainfluenza 2 (PCR) Parainfluenza 3 (PCR) Parainfluenza 4 (PCR) RSV (PCR) RSV RNA Qual (PCR) NEGATIVE Entero/Rhino (PCR) SARS-CoV-2 RNA (RT-PCR) NEGATIVE S. pyogenes GrpA ISSAC 06/02/25 06/02/25 06/03/25 15:42 16:15 08:29 WBC 3.8 L RBC 5.03 Hgb 14.3 Hct 42.5 MCV 84.5 MCH 28.4 MCHC 33.6 RDW 15.1 Plt Count 74 L MPV 10.5 Immature Gran % (Auto) Neut % (Auto) Lymph % (Auto) [place] % (Auto) Eos % (Auto) Baso % (Auto) Lymph # (Auto) [place] # (Auto) Eos # (Auto) Baso # (Auto) Abs Immat Gran (auto) Absolute Neuts (auto) Absolute Nucleated RBC 0.000 Nucleated RBC % (auto) 0.0 Sodium Potassium Chloride Carbon Dioxide Anion Gap BUN Creatinine Estim Creat Clear Calc Estimated GFR Random Glucose Estimat Average Glucose Hemoglobin A1c % Calcium Magnesium Total Bilirubin Direct Bilirubin AST ALT Alkaline Phosphatase Troponin I High Sens < 2.7 Total Protein Albumin Lipase Vitamin B12 269 Folate 12.5 Urine Color Urine Appearance Urine pH Ur Specific Gaffney Urine Protein Urine Glucose (UA) Urine Ketones Urine Blood Urine Nitrite Ur Leukocyte Esterase Urine RBC Urine WBC Ur Squamous Epith Cells Urine Bacteria Hyaline Casts Phenobarbital Respiratory Panel Jacobs See Note Adenovirus (Rapid PCR) Not Detected B.pert (TEM-PCR) Not Detected B.parapertussis DNA PCR Not Detected C. pneumoniae DNA (PCR) Not Detected Coronavirus OC43 (PCR) Not Detected Coronavirus HKU1 (PCR) Not Detected Coronavirus 229E (PCR) Not Detected Coronavirus NL63 (PCR) Not Detected Human Metapneumovir PCR Not Detected Influenza A (RT-PCR) Not Detected Influenza A (H1) PCR Not Detected Influ A () PCR Not Detected Influenza A (H3) PCR Not Detected Influenza Type A (PCR) Influenza B (RT-PCR) Not Detected Influenza Type B (PCR) M. pneumoniae (PCR) Not Detected Parainfluenza 1 (PCR) Not Detected Parainfluenza 2 (PCR) Not Detected Parainfluenza 3 (PCR) Not Detected Parainfluenza 4 (PCR) Not Detected RSV (PCR) Not Detected RSV RNA Qual (PCR) Entero/Rhino (PCR) Not Detected SARS-CoV-2 RNA (RT-PCR) Not Detected S. pyogenes GrpA ISSAC Negative Imaging Radiology Impressions: ITS Impressions Ribs w/Chest X-Ray 06/01/25 16:19 IMPRESSION: No acute cardiopulmonary process. No displaced rib fractures identified. Electronically signed by: Yareli Herrera MD 06/01/2025 05:26 PM EST RP KUB X-Ray 06/01/25 16:25 IMPRESSION: Small amount of probable stool load in the expected location of the ascending and descending colons. Electronically signed by: Yareli Herrera MD 06/01/2025 05:24 PM EST RP Mental Status Exam Mental Status Exam Level of Consciousness: Awake, Appropriate and Alert Patient Behavior: Appropriate, Talkative and Cooperative Affect Description: Appropriate Speech Pattern: Clear Thought Process: Intact Thought Content: positive for Intact Judgement: Good Medications Medications Current Medications Acetaminophen (Acetaminophen 325 Mg Tablet) 650 mg PO Q6H PRN PRN Reason: Pain, Mild 1-3,fever,headache Last Admin: 06/02/25 17:15 Dose: 650 mg Benzocaine (Throat Lozenge, Medicated Lozenge) 1 lozenge MUCOUS MEM Q2H PRN PRN Reason: Sore Throat Calcium Carbonate (Calcium Carbonate 750 Mg Tab.Chew) 750 mg PO Q4H PRN PRN Reason: Heartburn Last Admin: 06/02/25 14:48 Dose: 750 mg Clonidine HCl (Clonidine Hcl 0.1 Mg Tablet) 0.1 mg PO BID [facility]; Protocol Last Admin: 06/03/25 09:57 Dose: 0.1 mg Diazepam (Diazepam 10 Mg/2 Ml Cartridge) 5 mg IVPUSH Q4H PRN PRN Reason: Alcohol Withdrawal Last Admin: 06/02/25 03:29 Dose: 5 mg Diazepam (Diazepam 10 Mg/2 Ml Cartridge) 5 mg IVPUSH Q6H PRN PRN Reason: Alcohol Withdrawal Gabapentin (Gabapentin 600 Mg Tablet) 600 mg PO BID [facility] Last Admin: 06/03/25 09:57 Dose: 600 mg Guaifenesin/Codeine Phosphate (Guaifen/Codeine Sf 200/20/10ml 10 Ml Liquid) 10 ml PO Q4H PRN PRN Reason: Cough Last Admin: 06/02/25 16:03 Dose: 10 ml Thiamine HCl 100 mg/ Sodium (Chloride) 101 mls @ 202 mls/hr IV DAILY [facility] Last Infusion: 06/03/25 11:34 Dose: Infused Folic Acid 1 mg/ Sodium (Chloride) 50.2 mls @ 100.4 mls/hr IV DAILY [facility] Last Infusion: 06/03/25 12:41 Dose: Infused Lidocaine (Lidocaine 4 % Patch Adh..Patch) 1 patch TRANSDERMA DAILY [facility]; Protocol Last Admin: 06/03/25 09:58 Dose: Not Given Loratadine (Loratadine 10 Mg Tablet) 10 mg PO DAILY [facility] Last Admin: 06/03/25 09:57 Dose: 10 mg Magnesium Hydroxide (Milk Of Magnesia 30 Ml Oral.Susp) 30 ml PO DAILY PRN PRN Reason: Constipation Melatonin (Melatonin 3 Mg Tablet) 6 mg PO BEDTIME PRN PRN Reason: Insomnia Ondansetron HCl (Ondansetron Hcl 4 Mg/2 Ml Vial) 4 mg IVPUSH Q6H PRN PRN Reason: Nausea and Vomiting Pantoprazole Sodium (Pantoprazole Sodium 40 Mg/10 Ml Vial) 40 mg IVPUSH DAILY [facility] Last Admin: 06/03/25 09:55 Dose: 40 mg Pharmacy Consult (Consult Rx Etoh Phenob Im/Po) 1 each MISCELLANE ONCE PRN; Protocol PRN Reason: Consult order Phenobarbital (Phenobarbital 30 Mg Tablet) 60 mg PO BID [facility] Stop: 06/03/25 21:01 Last Admin: 06/03/25 09:57 Dose: 60 mg Phenobarbital (Phenobarbital 30 Mg Tablet) 30 mg PO BID [facility] Stop: 06/05/25 21:01 Phenobarbital (Phenobarbital 15 Mg Tablet) 15 mg PO DAILY [facility] Stop: 06/07/25 09:01 Sodium Chloride (0.9 % Sodium Chloride Flush 3 Ml Syringe) 3 ml IVFLUSH QSHIFT [facility] Last Admin: 06/03/25 10:09 Dose: Not Given Allergies Allergies Allergy/AdvReac Type Severity Reaction Status Date / Time No Known Allergies Allergy Verified 06/01/25 14:28 Assessment & Plan Assessment & Plan (1) Alcohol use disorder, severe, dependence: Status: Acute Code(s): F10.20 - Alcohol dependence, uncomplicated Assessment and Plan: withdrawal sx much improved--phenobarbital taper in place encouraged to continue b complex at home resume naltrexone 50mg QD--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 [facility] Past Medical History Medical History (Updated 06/03/25 @ 12:52 by Shweta Bassett CNP) Alcohol use disorder, severe, dependence Social History Social History Household Members: None Housing: House Do you presently have visiting nurse or other home services: No Alcohol intake: current Alcohol intake frequency: 3 or more drinks per day Alcohol type: hard liquor Patient Tobacco Use Status: Never used Tobacco service: No
--- NOTE | 2025-06-03 14:37 | PC.NURSE ---
Pt voided 425, PVR 262mls. no straight cath indicated will continue to monitor.
--- NOTE | 2025-06-03 15:06 | MHC.CM.PN ---
Pt. is not ready to DC, he is still showing sx of w/d. DCP to be assisted with addiction counselor.
--- NOTE | 2025-06-03 15:35 | P.PNIM_ITS ---
Subjective Subjective Date of Service: 06/03/25 Interval History: alcohol withdrawals Review of Systems very anxious and tremulous no chest tightness Review of Systems: Yes all other systems are reviewed and are negative Physical Exam 2 Exam: Exam: Appearance: Alert.? Oriented X3. Tremors/anxious/hallucinations cvs: rrr, [id number]. res: clear to auscultation ,no rhonchii or wheezing abd: no rebound or guarding ,nt, bs present. ext pulses present , no cyanosis . neuro: axo3 , nonfocal. Vital Signs: Vital Signs: Last Vital Signs Temp 97.5 F 06/03/25 15:24 Pulse 76 06/03/25 15:24 Resp 18 06/03/25 15:24 BP 145/83 H 06/03/25 15:24 Pulse Ox 97 06/03/25 15:24 O2 Del Method Room Air 06/03/25 15:24 BMI result Body Mass Index 29.0 Objective Data Active Medications Acetaminophen (Acetaminophen 325 Mg Tablet) 650 mg PO Q6H PRN PRN Reason: Pain, Mild 1-3,fever,headache Last Admin: 06/02/25 17:15 Dose: 650 mg Documented By: LYNN Benzocaine (Throat Lozenge, Medicated Lozenge) 1 lozenge MUCOUS MEM Q2H PRN PRN Reason: Sore Throat Calcium Carbonate (Calcium Carbonate 750 Mg Tab.Chew) 750 mg PO Q4H PRN PRN Reason: Heartburn Last Admin: 06/02/25 14:48 Dose: 750 mg Documented By: LYNN Clonidine HCl (Clonidine Hcl 0.1 Mg Tablet) 0.1 mg PO BID [facility]; Protocol Last Admin: 06/03/25 09:57 Dose: 0.1 mg Documented By: ASHLEY Diazepam (Diazepam 10 Mg/2 Ml Cartridge) 5 mg IVPUSH Q4H PRN PRN Reason: Alcohol Withdrawal Last Admin: 06/02/25 03:29 Dose: 5 mg Documented By: KOBE Diazepam (Diazepam 10 Mg/2 Ml Cartridge) 5 mg IVPUSH Q6H PRN PRN Reason: Alcohol Withdrawal Gabapentin (Gabapentin 600 Mg Tablet) 600 mg PO BID [facility] Last Admin: 06/03/25 09:57 Dose: 600 mg Documented By: ASHLEY Guaifenesin/Codeine Phosphate (Guaifen/Codeine Sf 200/20/10ml 10 Ml Liquid) 10 ml PO Q4H PRN PRN Reason: Cough Last Admin: 06/02/25 16:03 Dose: 10 ml Documented By: LYNN Thiamine HCl 100 mg/ Sodium (Chloride) 101 mls @ 202 mls/hr IV DAILY [facility] Last Infusion: 06/03/25 11:34 Dose: Infused Documented By: ASHLEY Folic Acid 1 mg/ Sodium (Chloride) 50.2 mls @ 100.4 mls/hr IV DAILY [facility] Last Infusion: 06/03/25 12:41 Dose: Infused Documented By: ASHLEY Lidocaine (Lidocaine 4 % Patch Adh..Patch) 1 patch TRANSDERMA DAILY [facility]; Protocol Last Admin: 06/03/25 09:58 Dose: Not Given Documented By: ASHLEY Non-Admin Reason: Patient Refused Loratadine (Loratadine 10 Mg Tablet) 10 mg PO DAILY [facility] Last Admin: 06/03/25 09:57 Dose: 10 mg Documented By: ASHLEY Magnesium Hydroxide (Milk Of Magnesia 30 Ml Oral.Susp) 30 ml PO DAILY PRN PRN Reason: Constipation Melatonin (Melatonin 3 Mg Tablet) 6 mg PO BEDTIME PRN PRN Reason: Insomnia Ondansetron HCl (Ondansetron Hcl 4 Mg/2 Ml Vial) 4 mg IVPUSH Q6H PRN PRN Reason: Nausea and Vomiting Pantoprazole Sodium (Pantoprazole Sodium 40 Mg/10 Ml Vial) 40 mg IVPUSH DAILY [facility] Last Admin: 06/03/25 09:55 Dose: 40 mg Documented By: ASHLEY Pharmacy Consult (Consult Rx Etoh Phenob Im/Po) 1 each MISCELLANE ONCE PRN; Protocol PRN Reason: Consult order Phenobarbital (Phenobarbital 30 Mg Tablet) 60 mg PO BID [facility] Stop: 06/03/25 21:01 Last Admin: 06/03/25 09:57 Dose: 60 mg Documented By: ASHLEY Phenobarbital (Phenobarbital 30 Mg Tablet) 30 mg PO BID [facility] Stop: 06/05/25 21:01 Phenobarbital (Phenobarbital 15 Mg Tablet) 15 mg PO DAILY [facility] Stop: 06/07/25 09:01 Sodium Chloride (0.9 % Sodium Chloride Flush 3 Ml Syringe) 3 ml IVFLUSH QSHIFT [facility] Last Admin: 06/03/25 10:09 Dose: Not Given Documented By: ASHLEY Non-Admin Reason: IV Running Labs 06/03/25 08:29 06/02/25 09:22 Labs: Laboratory Results - last 24 hr 06/02/25 06/02/25 06/02/25 09:22 15:42 16:15 MCV MCH MCHC RDW Plt Count MPV Absolute Nucleated RBC Nucleated RBC % (auto) Estimat Average Glucose 100 Hemoglobin A1c % 5.1 Troponin I High Sens < 2.7 Vitamin B12 Folate Respiratory Panel Jacobs See Note Adenovirus (Rapid PCR) Not Detected B.pert (TEM-PCR) Not Detected B.parapertussis DNA PCR Not Detected C. pneumoniae DNA (PCR) Not Detected Coronavirus OC43 (PCR) Not Detected Coronavirus HKU1 (PCR) Not Detected Coronavirus 229E (PCR) Not Detected Coronavirus NL63 (PCR) Not Detected Human Metapneumovir PCR Not Detected Influenza A (RT-PCR) Not Detected Influenza A (H1) PCR Not Detected Influ A (H1/09) PCR Not Detected Influenza A (H3) PCR Not Detected Influenza B (RT-PCR) Not Detected M. pneumoniae (PCR) Not Detected Parainfluenza 1 (PCR) Not Detected Parainfluenza 2 (PCR) Not Detected Parainfluenza 3 (PCR) Not Detected Parainfluenza 4 (PCR) Not Detected RSV (PCR) Not Detected Entero/Rhino (PCR) Not Detected SARS-CoV-2 RNA (RT-PCR) Not Detected S. pyogenes GrpA ISSAC Negative 06/03/25 08:29 MCV 84.5 MCH 28.4 MCHC 33.6 RDW 15.1 Plt Count 74 L MPV 10.5 Absolute Nucleated RBC 0.000 Nucleated RBC % (auto) 0.0 Estimat Average Glucose Hemoglobin A1c % Troponin I High Sens Vitamin B12 269 Folate 12.5 Respiratory Panel Jacobs Adenovirus (Rapid PCR) B.pert (TEM-PCR) B.parapertussis DNA PCR C. pneumoniae DNA (PCR) Coronavirus OC43 (PCR) Coronavirus HKU1 (PCR) Coronavirus 229E (PCR) Coronavirus NL63 (PCR) Human Metapneumovir PCR Influenza A (RT-PCR) Influenza A (H1) PCR Influ A (H1/09) PCR Influenza A (H3) PCR Influenza B (RT-PCR) M. pneumoniae (PCR) Parainfluenza 1 (PCR) Parainfluenza 2 (PCR) Parainfluenza 3 (PCR) Parainfluenza 4 (PCR) RSV (PCR) Entero/Rhino (PCR) SARS-CoV-2 RNA (RT-PCR) S. pyogenes GrpA ISSAC Assessment and Plan (1) Alcohol withdrawal syndrome: Status: Acute Plan 55 y/o M with severe alcohol use disorder presenting with alcohol withdrawal symptoms , acute pancreatitis (elevated lipase), transaminitis, and prerenal azotemia (likely pre-renal from volume depletion). No evidence of biliary obstruction on imaging. Alcohol withdrawal pheno levels 15.2 Continue phenobarbital protocol ,added extra pheno 65 mg im. CIWA monitoring-9, Monitor for progression to severe withdrawal (seizures, delirium tremens). Nutritional support: Thiamine, folate, multivitamins. uri like symptoms-? viral cough medication, rpp negative ekg nsr, nonspecific t wave abnormality, trops negative Acute pancreatitis possible secondary to alcohol use. KUB and cxr-seems fine clear liquid IV fluids, pain control, and antiemetics. Monitor for complications. Elevated LFTs: likely from chronic alcohol use Monitor LFTs and clinical status. 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 Prerenal azotemia likely due to decreased p.o. intake s/p ivf Hypernatremia: Secondary to above. imrpoved ,s/p ivf. Thrombocytopenia: Chronic Monitor CBC DVT prophylaxis: SubQ Lovenox ongoing need for stay considering severe alcohol withdrawals, pancreatitis, prerenal azotemia-need IV fluid, phenobarb protocol, CIWA monitoring,moniter renal function/electrolytes Quality Stroke Does the patient have a stroke diagnosis?: No VTE Prior VTE?: No VTE Risk Level:: Medical - moderate - high VTE Device Contraindication: N/A - Device Ordered VTE Drug Contraindication: N/A - Med Ordered
[2025-06-03] MEDS: 0.9 % Sodium Chloride Flush 3 ML SYRINGE IVFLUSH ×2 (16:02→21:16)
--- NOTE | 2025-06-03 16:36 | MHC.RECOVRN ---
TW met with pt in 487- to offer continued support related to alcohol use. Pt agreed to start IOP program at [facility] and completed telephone pre-screen. Pt has appt 06/05/25 @ 9am for intake. If pt is not discharged prior to that time he is aware to contact their office to reschedule. Discharge paperwork to be faxed by [facility] team to [facility] upon pt dishcarge. ANDRY obtained. ACS team available as needed for additional support or resources.
[2025-06-04 03:23] VITALS: BP 133/87; PULSE 67; RESP 14; TEMP 36.8; O2SAT 99
[2025-06-04 07:30] VITALS: BP 124/80; PULSE 72; RESP 18; TEMP 36.3; O2SAT 98
[2025-06-04] MEDS: 0.9 % Sodium Chloride Flush 3 ML SYRINGE IVFLUSH (09:45)
[2025-06-04] MEDS: Thiamine HCL 100 MG in 0.9 % Sodium Chloride 100 ML 202 MG IV (09:55)
--- NOTE | 2025-06-04 10:41 | MHC.RECOVRN ---
Checked in with pt in 487 to offer recovery support Pt states he is feeling much better and was told he may discharge today Pt was reminded of appt at [facility] for IOP on 06/06/25. Information is also included on discharge summary. Pt states he will attend [facility] for continuation of Naltrexone and was provided their walk-in hours and contact information. This information was also added to discharge summary. Pt also reports he will attend AA meeting upon discharge and declined a meeting list as he has the meeting list [employer] on his cellphone. Pt denies questions or concerns at this time.
--- NOTE | 2025-06-04 11:19 | P.DS_ITS ---
DS: Providers Provider Date of admission: 06/01/25 15:25 Date of discharge: 06/04/25 Primary care physician: Nahum Rob DO, MD Consults: 06/01/25 21:21 Addiction Medicine Provider Routine Consulting Provider: Addiction Covering Reason for consultation: ETOH W/D seeking detox, high risk scoring on admit assessment Attending physician on discharge: Charlee Greenwood Discharging clinician: Charlee Greenwood DS: Diagnosis Discharge Diagnosis (1) Alcohol use disorder, severe, dependence: Status: Acute DS: Summary Hospital Course Hospital Course: HPI:54y/o M with no significant past medical history who reports daily consumption of approximately a handle of vodka since Thanksgiving bingeing(per ed last drink this morning). He is also saying he is not having much appetite, also feeling dehydrated and urine output also decreasing. Has some abdominal pain left flank area, denies nausea, but also says have some ribcage pain and cough dry, says passing gases ,some small amount of bm's. In addition-he says that he feels like having hallucination like insect crawling on him. Labs EKG reviewed: WBC 3.9, platelets 100, sodium: 146 BUN :18, cr 0.93 lft;s elevated but improving from previous. ekg:nsr lipase : 140. Hospital course: Patient was admitted for alcohol withdrawal, mild elevated LFTs, also found to have thrombocytopenia: Patient was started on phenobarb protocol for alcohol withdrawal, thiamine and folic acid. LFT seems improving from the previous. Thrombocytopenia possibly related to underlying alcohol use. Platelets are stable in 70s. No ecchymosis or any gross bleeding. Patient was strongly advised to to avoid blood thinner, aspirin, NSAIDs and other medications that can cause thrombocytopenia or bleeding. Patient was strongly advised to abstain from alcohol. Patient has some cough mostly dry, runny nose throat itchiness: Chest x-ray negative Respiratory pathogen panel negative, strep pyogenes groupNAT -negative. Patient was given cough medication. In addition patient was encouraged for p.o. hydration and p.o. intake which is already improving. Naltrexone and sertraline sent to the pharmacy by addiction team. Monitor liver function and CBC outpatient-further workup and management outpatient. Patient also needs to follow up with the outpatient program as per addiction team-Pt was reminded of appt at [facility] for IOP on 06/06/25 per control and recovery combat rescue note. Above management discussed with the patient in detail length, he understand and in agreement with the above plan. total time spent 40 minute. Staff present during conversation. Time Attestation Total time managing care of this patient today: 40 mintues. Discharge Coordination Time (in mins): 40 min Quality: Safe Use of Opioids Does Pt have an Active Cancer Diagnosis on the Problem List?: No Quality: Stroke Does the patient have a stroke diagnosis?: No Physical Exam Exam: Exam: Appearance: Alert.? Oriented X3.? cvs: rrr, [id number] . res: clear to auscultation ,no rhonchii or wheezing abd: no rebound or guarding ,nt, bs present. ext pulses present , no cyanosis. neuro: axo3 , nonfocal. Vital Signs: Vital Signs: Last Vital Signs Temp 97.4 F 06/04/25 07:30 Pulse 72 06/04/25 07:30 Resp 18 06/04/25 07:30 BP 124/80 06/04/25 07:30 Pulse Ox 98 06/04/25 07:30 O2 Del Method Room Air 06/04/25 07:30 BMI result Body Mass Index 29.0 DS: Data Data Completed and Pending Completed studies during hospitalization [Text1]: Procedures Detoxification Services for Substance Abuse Treatment (02/27/25) Imaging Chest x-ray: Radiologist's impression: ITS Impressions Ribs w/Chest X-Ray 06/01/25 16:19 IMPRESSION: No acute cardiopulmonary process. No displaced rib fractures identified. KUB X-Ray 06/01/25 16:25 IMPRESSION: Small amount of probable stool load in the expected location of the ascending and descending colons. Discharge Plan Discharge Anticipated Discharge Date/Time: 06/04/25 11:06 Patient Disposition: Home, Self-Care Discharge Diagnosis: alcohol withdrawals Referrals: [facility] [Other] - 06/06/25 9:00 am Referral Note: This is an intake appt to begin IOP. If you can not make this appt please call to reschedule. [facility] [Provider Group] - 06/06/25 8:00 am Referral Note: Please call to schedule an intake appt for continuation of Naltrexone. You may also utilize their walk-in hours Mon-Thurs 830am-4pm Nahum Rob DO, MD [Primary Care Provider, Internal Medicine] - 1 Week Discharge Medications: New clonidine HCl 0.1 mg Tablet 0.1 mg PO BID PRN (Reason: anxiety) Qty: 20 0RF Protocol: Hold for SBP< HOLD for SBP < : 90 naltrexone 50 mg Tablet 50 mg PO DAILY Qty: 1 0RF loratadine 10 mg Tablet 10 mg PO DAILY Qty: 7 0RF Robitussin Cough-Sore Throat 325-10 mg/10 mL liquid 20 ml PO Q4H PRN (Reason: cough) Qty: 237 0RF thiamine HCl (vitamin B1) 100 mg capsule 100 mg PO DAILY Qty: 30 0RF folic acid 1 mg tablet 1 mg PO DAILY Qty: 30 0RF sertraline 50 mg Tablet 50 mg PO DAILY Qty: 1 0RF Discontinued ibuprofen 200 mg Tablet 800 mg PO Q6H PRN (Reason: Pain) Discharge Orders: Discharge Order (Routine); Ordered 06/04/25 Ordered By: Charlee Greenwood Diet: Advance to usual diet Activity on Discharge: As tolerated Stand Alone Forms: Patient Portal Discharge page Print Language: Slovenian Other Ambulatory Orders: Complete Blood Count no Diff (Routine) Timeframe: 1 Week Facility: [facility] - Location: Laboratory Ordered By: Charlee Greenwood Liver Panel (Routine) Timeframe: 1 Week Facility: [facility] - Location: Laboratory Ordered By: Charlee Greenwood Care Plan Goals: Patient was admitted for alcohol withdrawal, mild elevated LFTs, also found to have thrombocytopenia: Patient was started on phenobarb protocol for alcohol withdrawal, thiamine and folic acid. LFT seems improving from the previous. Thrombocytopenia probably related to underlying alcohol use. Platelets are stable in 70s. No ecchymosis or any gross bleeding. Patient was strongly advised to to avoid blood thinner, aspirin, NSAIDs and other medications that can cause thrombocytopenia or bleeding. Patient was strongly advised to abstain from alcohol Naltrexone and sertraline sent to the pharmacy by addiction team. Monitor liver function and CBC outpatient-further workup and management outpatient. Patient also needs to follow up with the outpatient program as per addiction team. Health Concerns: Monitor CBC and LFT outpatient. Plan of Treatment: As above. Assessment: As above. Discharge Date/Time: 06/04/25 13:00
[2025-06-04 11:24] VITALS: BP 104/71; PULSE 88; RESP 16; TEMP 36.2; O2SAT 98
--- NOTE | 2025-06-04 12:41 | MHC.CM.PN ---
Patient is discharged to home selfcare today. SW arranged for an [employer] to provide transportation. occupational health physician is scheduled for 1pm steel pickler in the front lobby.
== END 2025-06-04 13:00 | disposition home or self-care (01) | DRG 775 ==
LOC: HO.ED 15:28 → HO.EDOVER 16:05 → HO.IMC 19:36
PROVIDERS: Admitting Provider Internal Medicine; Emergency Provider Emergency Medicine; PCP Internal Medicine; Visit Provider Internal Medicine
DX: F10.239 Alcohol dependence with withdrawal, unspecified (principal); K85.20 Alcohol induced acute pancreatitis without necrosis or infection; E87.0 Hyperosmolality and hypernatremia; D69.59 Other secondary thrombocytopenia; E87.1 Hypo-osmolality and hyponatremia; Z20.822 Contact with and (suspected) exposure to COVID-19; Z79.899 Other long term (current) drug therapy
CPT/HCPCS: 36415; 71111; 74018; 80048; 80076; 80184; 81001; 81003; 82607; 82746; 83036; 83690; 83735; 84484; 85025; 85027; 87633; 87637; 87651; 93005; 99285; J1650; J1808; J2470; J2560; J3360; J3411; J7120; S9485

== ENCOUNTER → 2025-06-01 14:32 | Outpatient (BNV) | payer BC, SELFPAY | PROVIDERS: Admitting Provider Internal Medicine; Emergency Provider Emergency Medicine; PCP Internal Medicine; Visit Provider Internal Medicine Cardiovascular Disease | DX: R94.31 Abnormal electrocardiogram [ECG] [EKG] (principal); R00.0 Tachycardia, unspecified | CPT/HCPCS: 93010 ==

== ENCOUNTER 2025-06-01 15:25 | Outpatient (BNV) | payer BC, SELFPAY | END 2025-06-02 15:40 | PROVIDERS: Admitting Provider Internal Medicine; Emergency Provider Emergency Medicine; PCP Internal Medicine; Visit Provider Internal Medicine Cardiovascular Disease | DX: R94.31 Abnormal electrocardiogram [ECG] [EKG] (principal); R07.89 Other chest pain | CPT/HCPCS: 93010 ==

== ENCOUNTER 2025-06-01 15:25 | Outpatient (BNV) | payer BC, SELFPAY | END 2025-06-01 16:25 | PROVIDERS: Admitting Provider Internal Medicine; Emergency Provider Emergency Medicine; PCP Internal Medicine; Visit Provider Radiology Body Imaging | DX: R05.9 Cough, unspecified (principal); R07.89 Other chest pain; R10.9 Unspecified abdominal pain | CPT/HCPCS: 71111; 74018 ==

== ENCOUNTER → 2025-06-01 15:25 | Outpatient (BNV) | payer BC, SELFPAY | PROVIDERS: Admitting Provider Internal Medicine; Emergency Provider Emergency Medicine; PCP Internal Medicine; Visit Provider Internal Medicine | DX: F10.932 Alcohol use, unspecified with withdrawal with perceptual disturbance (principal); K85.00 Idiopathic acute pancreatitis without necrosis or infection; R74.01 Elevation of levels of liver transaminase levels | CPT/HCPCS: 99222; 99232; 99239 ==

== ENCOUNTER → 2025-06-01 15:25 | Outpatient (BNV) | payer BC, SELFPAY | PROVIDERS: Admitting Provider Internal Medicine; Emergency Provider Emergency Medicine; PCP Internal Medicine; Visit Provider Nurse Practitioner Psychiatric/Mental Health | DX: F10.20 Alcohol dependence, uncomplicated (principal) | CPT/HCPCS: 99252 ==